=== PATIENT | female | born 1980 | race Caucasian/White ===

== ENCOUNTER → 2016-03-22 | Outpatient (REF) | payer OTHER ==
[~2016-03-22] MED LIST: ASPI1TAB PO; BUSP10TA PO; FLUO10CA9 PO; LOVA20TA2 PO; TRAZ150T14 PO; VITMTA PO
== END ==
LOC: M SFHCWAGY 15:18
PROVIDERS: ATTEND Nurse Practitioner Family
DX: Z12.4 Encounter for screening for malignant neoplasm of cervix (principal)

== ENCOUNTER 2016-04-06 14:42 | Emergency (ER) | payer OTHER ==
[2016-04-06] MEDS ORDERED: NORCO, ANEXSIA 5/325MG TABLET (HYDROcodone/ACETAMINOPHEN) As Ordered ONE (16:31)
[2016-04-06] MEDS ORDERED: KETOROLAC TROMETHAMINE 10 MG TAB As Ordered ONE (16:31)
--- NOTE | 2016-04-06 16:39 | EDDOCDS ---
Physician Documentation [facility] Name: Moo Gardiner Age: 36 yrs Sex: Female : 1980 Arrival Date: 04/06/2016 Time: 14:42 Bed TR7 Private MD: Ramon Boyd Disposition: 04/06/16 16:30 Discharged to Home/Self Care. Impression: Pelvic and perineal pain - chronic. - Condition is Stable. - Discharge Instructions: Pelvic Pain, Female. - Prescriptions for Hydrocodone- Acetaminophen 5-325 mg Oral Tablet - take 1 tablet by ORAL route every 6 hours As needed MDD: 4 tabs; 16 tablet. - Medication Reconciliation, Local Pharmacy Hours form. - Follow up: Emergency Department; When: As needed. Follow up: Samara Hernandez MD; When: Call to arrange an appointment; Reason: Wound/Symptom Recheck, Recheck today's complaints, Worsening of conditions, Continuance of care. - Problem is chronic. - Symptoms are unchanged. - Notes: You may take motrin 800 mg over the counter three times daily as needed for pain. Historical: - Allergies: no known allergies; - Home Meds: 1. trazodone 150 mg Oral tab 1 tab nightly 2. Prozac 20 mg Oral cap 1 cap once daily 3. lovastatin 20 mg Oral tab 1 tab once daily 4. BuSpar 10 mg Oral tab 1 tab 3 times per day 5. aspirin 81 mg Oral chew 1 tab once daily 6. multivitamin Oral tab daily - PMHx: Depression; Hypercholesterolemia; Kidney stones; Anxiety; PTSD; - PSHx: Lithotripsy; Tubal ligation; Tonsillectomy; - Social history: Smoking status: Patient uses tobacco products, current every day smoker. No barriers to communication noted, The patient speaks fluent Argentine, Speaks appropriately for age. - Family history: Not pertinent. - : The pt / caregiver states he / she is not on anticoagulants. Home medication list is obtained from the patient, [employer] import data. 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 6 in. (167.64 cm); Pain 10/10; 14:43 Body Mass Index 27.44 (77.11 kg, 167.64 cm) sew MDM: 16:29 ketorolac 10 mg PO once ordered. cc10 16:29 HYDROcodone-acetaminophen 5 mg-325 mg 1 tabs PO once ordered. cc10 Administered Medications: 16:35 Drug: ketorolac 10 mg [ketorolac 10 mg tablet (1 tabs)] Route: PO; mlb1 16:35 Drug: HYDROcodone-acetaminophen 1 tabs [hydrocodone 5 mg-acetaminophen 325 mg tablet (1 mlb1 tabs)] Route: PO; Signatures: Sohail Orozco RN RN mlb1 Marina Hinton RN RN ead Coniski, Colin, PA-C PACadence cc10 IVY
--- NOTE | 2016-04-06 16:39 | EDDOCDS ---
Nurse's Notes [facility] Name: Moo Gardiner Age: 36 yrs Sex: Female : 1980 Arrival Date: 04/06/2016 Time: 14:42 Bed TR7 Private MD: Ramon Boyd Diagnosis: Pelvic and perineal pain-chronic Presentation: 04/06 15:00 Presenting complaint: Patient states: Pt states she was seen here two weeks ago and ead diagnosed with polyps on the cervix. Pt states she has a consult with a surgeon next month and states "I just need something for pain. They gave me a script for something last time but I couldn't get prior authorization for it to have it filled.". Risk factors: the patient reports a small or scant amount of vaginal bleeding. Adult Sepsis Screening: The patient does not have new or worsening altered mentation. Patient's respiratory rate is less than 22. Systolic blood pressure is greater than 100. Patient has a qSOFA score of 0- Negative Sepsis Screen. Suicide/Homicide risk assessment- the patient denies having any suicidal and/or homicidal ideations and does not present with any other emotional, behavioral or mental health complaints. Status: Patient is not a business services associate or dependent. Transition of care: patient was not received from another setting of care. 15:00 Acuity: LANA Level 3 ead 15:00 Method Of Arrival: Walkin/Carried/Asstd ead Triage Assessment: 15:00 General: Appears in no apparent distress, uncomfortable, Behavior is appropriate for ead age, cooperative. Pain: Location: left lower quadrant Pain currently is 10 out of 10 on a pain scale. HIV screening NA for this visit Offered previously. GI: Reports lower abdominal pain, Denies nausea, vomiting. : Reports vaginal bleeding that is spotty. Derm: Skin is pink, warm & dry. 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 trazodone 150 mg Oral tab 1 tab nightly 2. Prozac 20 mg Oral cap 1 cap once daily 3. lovastatin 20 mg Oral tab 1 tab once daily 4. BuSpar 10 mg Oral tab 1 tab 3 times per day 5. aspirin 81 mg Oral chew 1 tab once daily 6. multivitamin Oral tab daily - PMHx: Depression; Hypercholesterolemia; Kidney stones; Anxiety; PTSD; - PSHx: Lithotripsy; Tubal ligation; Tonsillectomy; - Social history: Smoking status: Patient uses tobacco products, current every day smoker. No barriers to communication noted, The patient speaks fluent [place] Citizen, Speaks appropriately for age. - Family history: Not pertinent. - : The pt / caregiver states he / she is not on anticoagulants. Home medication list is obtained from the patient, [employer] import data. 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 Screenin:36 Screening information is obtained from the patient. Fall risk: No risks identified. mlb1 Assistance ADL's: requires no assistance with activities of daily living. Abuse/DV Screen: The patient / caregiver reports he/she is: not in a situation that causes fear, pain or injury. Nutritional screening: No deficits noted. Advance Directives: Currently, there is no health care proxy. home support is adequate. Assessment: 16:35 General: Appears in no apparent distress, comfortable, Behavior is appropriate for age, mlb1 cooperative. Pain: Location: pelvis and left lower quadrant Pain currently is 10 out of 10 on a pain scale. GI: Abdomen is non- distended Bowel sounds present X 4 quads. Abd is soft and non tender. Derm: No deficits noted. Vital Signs: 14:43 BP 126 / 68; Pulse 73; Resp 16; Temp 97.3(O); Pulse Ox 100% on R/A; Weight 77.11 kg; sew Height 5 ft. 6 in. (167.64 cm); Pain 10/10; 14:43 Body Mass Index 27.44 (77.11 kg, 167.64 cm) [facility] [place]: 14:43 Log In Time: April 06, 2016 at 14:43. [facility] [place] Course: 14:43 Patient visited by Iris Cassidy. sew 14:43 Ramon Boyd DO is Private Physician. sew 14:43 Patient moved to Waiting sew 14:44 Patient visited by Iris Cassidy. sew 14:44 Patient moved to Pre RCE sew 15:01 Triage Initiated ead 16:16 Patient visited by Marina Hinton RN. ead 16:16 Patient moved to Triage 1 ead 16:21 Duran Hanley PA-C is PHCP. cc10 16:21 Iris Cisneros MD is Attending Physician. cc10 16:25 Patient visited by Duran Hanley PA-C. cc10 16:25 Patient visited by Duran Hanley PA-C. cc10 16:30 Samara Hernandez MD is Referral Physician. cc10 16:36 Patient moved to [place] [id number] 16:37 No IV's were initiated during this patient's visit. No procedures done that require mlb1 assistance. 16:38 The patient / caregiver is instructed regarding the plan of care and ED course. mlb1 Administered Medications: 16:35 Drug: ketorolac 10 mg [ketorolac 10 mg tablet (1 tabs)] Route: PO; mlb1 16:35 Drug: HYDROcodone-acetaminophen 1 tabs [hydrocodone 5 mg-acetaminophen 325 mg tablet (1 mlb1 tabs)] Route: PO; Order Results: There are currently no results for this order. Outcome: 16:30 Discharge ordered by Provider. cc10 16:37 Discharge Assessment: Patient awake, alert and oriented x 3. No cognitive and/or mlb1 functional deficits noted. Patient verbalized understanding of disposition instructions. patient administered narcotics - yes. Pt provided with safe discharge. The following High Risk Discharge criteria are identified: None. Discharged to home ambulatory. Condition: good. Discharge instructions given to patient, Instructed on discharge instructions, follow up and referral plans. medication usage, no driving heavy equipment, Demonstrated understanding of instructions, medications, Patient was not receptive of discharge instructions. Prescriptions given X 1. No special radiology studies were completed. Property sent home with patient. 16:38 Patient left the ED. mlb1 Signatures: Sohail Orozco RN RN mlb1 Wanda Tomas,RN SANJU ck1 Iris Cassidy Emily, RN RN ead Coniski, Colin, PA-C PA-C cc10 MTDOswaldo
--- NOTE | 2016-04-08 17:39 | EDDOCDS ---
Physician Documentation [facility] Name: Moo Gardiner Age: 36 yrs Sex: Female : 1980 Arrival Date: 04/06/2016 Time: 14:42 Bed TR7 Private MD: Ramon Boyd Disposition: 04/06/16 16:30 Discharged to Home/Self Care. Impression: Pelvic and perineal pain - chronic. - Condition is Stable. - Discharge Instructions: Pelvic Pain, Female. - Prescriptions for Hydrocodone- Acetaminophen 5-325 mg Oral Tablet - take 1 tablet by ORAL route every 6 hours As needed MDD: 4 tabs; 16 tablet. - Medication Reconciliation, Local Pharmacy Hours form. - Follow up: Emergency Department; When: As needed. Follow up: Samara Hernandez MD; When: Call to arrange an appointment; Reason: Wound/Symptom Recheck, Recheck today's complaints, Worsening of conditions, Continuance of care. - Problem is chronic. - Symptoms are unchanged. - Notes: You may take motrin 800 mg over the counter three times daily as needed for pain. Historical: - Allergies: no known allergies; - Home Meds: 1. trazodone 150 mg Oral tab 1 tab nightly 2. Prozac 20 mg Oral cap 1 cap once daily 3. lovastatin 20 mg Oral tab 1 tab once daily 4. BuSpar 10 mg Oral tab 1 tab 3 times per day 5. aspirin 81 mg Oral chew 1 tab once daily 6. multivitamin Oral tab daily - PMHx: Depression; Hypercholesterolemia; Kidney stones; Anxiety; PTSD; - PSHx: Lithotripsy; Tubal ligation; Tonsillectomy; - Social history: Smoking status: Patient uses tobacco products, current every day smoker. No barriers to communication noted, The patient speaks fluent Finnish, Speaks appropriately for age. - Family history: Not pertinent. - : The pt / caregiver states he / she is not on anticoagulants. Home medication list is obtained from the patient, [employer] import data. 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 6 in. (167.64 cm); Pain 10/10; 14:43 Body Mass Index 27.44 (77.11 kg, 167.64 cm) sew MDM: 16:29 ketorolac 10 mg PO once ordered. cc10 16:29 HYDROcodone-acetaminophen 5 mg-325 mg 1 tabs PO once ordered. cc10 04/07 12:23 T-Sheet-- Draft Copy was scanned into [employer] and attached to record. gb Administered Medications: 04/06 16:35 Drug: ketorolac 10 mg [ketorolac 10 mg tablet (1 tabs)] Route: PO; mlb1 16:35 Drug: HYDROcodone-acetaminophen 1 tabs [hydrocodone 5 mg-acetaminophen 325 mg tablet (1 mlb1 tabs)] Route: PO; Signatures: Marcie Beltran, Reg Reg gb Sohail Orozco RN RN mlb1 Marina Hinton RN RN Duran Julian PA-C PACadence cc10 The chart was reviewed and I authenticate all verbal orders and agree with the evaluation and treatment provided.Attachments: 04/07 12:23 T-Sheet-- Draft Copy gb Chart Complete MTDD
--- NOTE | 2016-04-08 17:39 | EDDOCDS ---
Physician Documentation [facility] Name: Moo Gardiner Age: 36 yrs Sex: Female : 1980 Arrival Date: 04/06/2016 Time: 14:42 Bed TR7 Private MD: Ramon Boyd Disposition: 04/06/16 16:30 Discharged to Home/Self Care. Impression: Pelvic and perineal pain - chronic. - Condition is Stable. - Discharge Instructions: Pelvic Pain, Female. - Prescriptions for Hydrocodone- Acetaminophen 5-325 mg Oral Tablet - take 1 tablet by ORAL route every 6 hours As needed MDD: 4 tabs; 16 tablet. - Medication Reconciliation, Local Pharmacy Hours form. - Follow up: Emergency Department; When: As needed. Follow up: Samara Henrandez MD; When: Call to arrange an appointment; Reason: Wound/Symptom Recheck, Recheck today's complaints, Worsening of conditions, Continuance of care. - Problem is chronic. - Symptoms are unchanged. - Notes: You may take motrin 800 mg over the counter three times daily as needed for pain. Historical: - Allergies: no known allergies; - Home Meds: 1. trazodone 150 mg Oral tab 1 tab nightly 2. Prozac 20 mg Oral cap 1 cap once daily 3. lovastatin 20 mg Oral tab 1 tab once daily 4. BuSpar 10 mg Oral tab 1 tab 3 times per day 5. aspirin 81 mg Oral chew 1 tab once daily 6. multivitamin Oral tab daily - PMHx: Depression; Hypercholesterolemia; Kidney stones; Anxiety; PTSD; - PSHx: Lithotripsy; Tubal ligation; Tonsillectomy; - Social history: Smoking status: Patient uses tobacco products, current every day smoker. No barriers to communication noted, The patient speaks fluent Ukrainian, Speaks appropriately for age. - Family history: Not pertinent. - : The pt / caregiver states he / she is not on anticoagulants. Home medication list is obtained from the patient, [employer] import data. 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 6 in. (167.64 cm); Pain 10/10; 14:43 Body Mass Index 27.44 (77.11 kg, 167.64 cm) sew MDM: 16:29 ketorolac 10 mg PO once ordered. cc10 16:29 HYDROcodone-acetaminophen 5 mg-325 mg 1 tabs PO once ordered. cc10 04/07 12:23 T-Sheet-- Draft Copy was scanned into [employer] and attached to record. gb Administered Medications: 04/06 16:35 Drug: ketorolac 10 mg [ketorolac 10 mg tablet (1 tabs)] Route: PO; mlb1 16:35 Drug: HYDROcodone-acetaminophen 1 tabs [hydrocodone 5 mg-acetaminophen 325 mg tablet (1 mlb1 tabs)] Route: PO; Signatures: Marcie Beltran, Reg Reg gb Sohail Orozco RN RN mlb1 Marina Hinton RN RN Duran Julian PA-C PACadence cc10 The chart was reviewed and I authenticate all verbal orders and agree with the evaluation and treatment provided.Attachments: 04/07 12:23 T-Sheet-- Draft Copy gb Chart Complete MTDD
--- NOTE | 2016-04-08 17:40 | EDDOCDS ---
Nurse's Notes [facility] Name: Moo Gardiner Age: 36 yrs Sex: Female : 1980 Arrival Date: 04/06/2016 Time: 14:42 Bed TR7 Private MD: Ramon Boyd Diagnosis: Pelvic and perineal pain-chronic Presentation: 04/06 15:00 Presenting complaint: Patient states: Pt states she was seen here two weeks ago and ead diagnosed with polyps on the cervix. Pt states she has a consult with a surgeon next month and states "I just need something for pain. They gave me a script for something last time but I couldn't get prior authorization for it to have it filled.". Risk factors: the patient reports a small or scant amount of vaginal bleeding. Adult Sepsis Screening: The patient does not have new or worsening altered mentation. Patient's respiratory rate is less than 22. Systolic blood pressure is greater than 100. Patient has a qSOFA score of 0- Negative Sepsis Screen. Suicide/Homicide risk assessment- the patient denies having any suicidal and/or homicidal ideations and does not present with any other emotional, behavioral or mental health complaints. 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 Transition of care: patient was not received from another setting of care. 15:00 Acuity: LANA Level 3 ead 15:00 Method Of Arrival: Walkin/Carried/Asstd ead Triage Assessment: 15:00 General: Appears in no apparent distress, uncomfortable, Behavior is appropriate for ead age, cooperative. Pain: Location: left lower quadrant Pain currently is 10 out of 10 on a pain scale. HIV screening NA for this visit Offered previously. GI: Reports lower abdominal pain, Denies nausea, vomiting. : Reports vaginal bleeding that is spotty. Derm: Skin is pink, warm & dry. 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 trazodone 150 mg Oral tab 1 tab nightly 2. Prozac 20 mg Oral cap 1 cap once daily 3. lovastatin 20 mg Oral tab 1 tab once daily 4. BuSpar 10 mg Oral tab 1 tab 3 times per day 5. aspirin 81 mg Oral chew 1 tab once daily 6. multivitamin Oral tab daily - PMHx: Depression; Hypercholesterolemia; Kidney stones; Anxiety; PTSD; - PSHx: Lithotripsy; Tubal ligation; Tonsillectomy; - Social history: Smoking status: Patient uses tobacco products, current every day smoker. No barriers to communication noted, The patient speaks fluent Malaysian, Speaks appropriately for age. - Family history: Not pertinent. - : The pt / caregiver states he / she is not on anticoagulants. Home medication list is obtained from the patient, [employer] import data. 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 Screenin:36 Screening information is obtained from the patient. Fall risk: No risks identified. mlb1 Assistance ADL's: requires no assistance with activities of daily living. Abuse/DV Screen: The patient / caregiver reports he/she is: not in a situation that causes fear, pain or injury. Nutritional screening: No deficits noted. Advance Directives: Currently, there is no health care proxy. home support is adequate. Assessment: 16:35 General: Appears in no apparent distress, comfortable, Behavior is appropriate for age, mlb1 cooperative. Pain: Location: pelvis and left lower quadrant Pain currently is 10 out of 10 on a pain scale. GI: Abdomen is non- distended Bowel sounds present X 4 quads. Abd is soft and non tender. Derm: No deficits noted. Vital Signs: 14:43 BP 126 / 68; Pulse 73; Resp 16; Temp 97.3(O); Pulse Ox 100% on R/A; Weight 77.11 kg; sew Height 5 ft. 6 in. (167.64 cm); Pain 10/10; 14:43 Body Mass Index 27.44 (77.11 kg, 167.64 cm) [facility] [place] Vitals: 14:43 Log In Time: April 06, 2016 at 14:43. [facility] [place] ED Course: 14:43 Patient visited by Iris Cassidy. sew 14:43 Ramon Boyd DO is Private Physician. sew 14:43 Patient moved to Waiting sew 14:44 Patient visited by Iris Cassidy. sew 14:44 Patient moved to Pre RCE sew 15:01 Triage Initiated ead 16:16 Patient visited by Marina Hinton RN. ead 16:16 Patient moved to Triage 1 ead 16:21 Duran Hanley PA-C is PHCP. cc10 16:21 Iris Cisneros MD is Attending Physician. cc10 16:25 Patient visited by Duran Hanley PA-C. cc10 16:25 Patient visited by Duran Hanley PA-C. cc10 16:30 Samara Hernandez MD is Referral Physician. cc10 16:36 Patient moved to TR7 [facility] 16:37 No IV's were initiated during this patient's visit. No procedures done that require mlb1 assistance. 16:38 The patient / caregiver is instructed regarding the plan of care and ED course. mlb1 04/07 12:23 T-Sheet-- Draft Copy was scanned into [employer] and attached to record. gb Administered Medications: 04/06 16:35 Drug: ketorolac 10 mg [ketorolac 10 mg tablet (1 tabs)] Route: PO; mlb1 16:35 Drug: HYDROcodone-acetaminophen 1 tabs [hydrocodone 5 mg-acetaminophen 325 mg tablet (1 mlb1 tabs)] Route: PO; Order Results: There are currently no results for this order. Outcome: 16:30 Discharge ordered by Provider. cc10 16:37 Discharge Assessment: Patient awake, alert and oriented x 3. No cognitive and/or mlb1 functional deficits noted. Patient verbalized understanding of disposition instructions. patient administered narcotics - yes. Pt provided with safe discharge. The following High Risk Discharge criteria are identified: None. Discharged to home ambulatory. Condition: good. Discharge instructions given to patient, Instructed on discharge instructions, follow up and referral plans. medication usage, no driving heavy equipment, Demonstrated understanding of instructions, medications, Patient was not receptive of discharge instructions. Prescriptions given X 1. No special radiology studies were completed. Property sent home with patient. 16:38 Patient left the ED. mlb1 Signatures: Marcie Beltran, Reg Reg Sohail Tavares RN RN mlb1 Wanda Tomas RN RN ck1 Iris Cassidy Emily, RN RN eaDuran Mcgee PA-C PA-C cc Chart Complete MTDD
== END 2016-04-06 16:38 | disposition home or self-care (01) ==
LOC: M ED 14:42
DX: R10.2 Pelvic and perineal pain (principal); F32.9 Major depressive disorder, single episode, unspecified; E78.00 Pure hypercholesterolemia, unspecified; Z87.442 Personal history of urinary calculi; F41.9 Anxiety disorder, unspecified; F43.10 Post-traumatic stress disorder, unspecified; F17.210 Nicotine dependence, cigarettes, uncomplicated; Z79.82 Long term (current) use of aspirin; Z79.899 Other long term (current) drug therapy

== ENCOUNTER 2016-05-04 15:09 | Emergency (ER) | payer OTHER ==
[2016-05-04] MEDS ORDERED: NORCO, ANEXSIA 5/325MG TABLET (HYDROcodone/ACETAMINOPHEN) As Ordered ONE (15:47)
[2016-05-04] MEDS ORDERED: KETOROLAC 30 MG/ML VIAL (J1885) As Ordered ONE (15:48)
--- NOTE | 2016-05-04 16:20 | EDDOCDS ---
Nurse's Notes [facility] Name: Moo Gardiner Age: 36 yrs Sex: Female : 1980 Arrival Date: 05/04/2016 Time: 15:09 Bed TR8 Private MD: Ramon Boyd Diagnosis: Pelvic and perineal pain-Chronic;Dysmenorrhea, unspecified Presentation: 05/04 15:15 Presenting complaint: Patient states: Suprapubic pain began over a year ago worse mlb1 recently states diagnosed with polyps on Uterus and scheduled for hysterectomy in June. Risk factors: the patient reports moderate vaginal bleeding. Adult Sepsis Screening: The patient does not have new or worsening altered mentation. Patient's respiratory rate is less than 22. Systolic blood pressure is greater than 100. Patient has a qSOFA score of 0- Negative Sepsis Screen. Suicide/Homicide risk assessment- the patient denies having any suicidal and/or homicidal ideations and does not present with any other emotional, behavioral or mental health complaints. Status: Patient is not a corporate services manager or dependent. Transition of care: patient was not received from another setting of care. 15:15 Acuity: LANA Level 3 mlb1 15:15 Method Of Arrival: Walkin/Carried/Asstd mlb1 Triage Assessment: 15:18 General: Appears uncomfortable, Behavior is appropriate for age, cooperative. Pain: mlb1 Location: suprapubic area Pain currently is 10 out of 10 on a pain scale. HIV screening NA for this visit Offered previously. 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 Prozac 10 mg oral tab once daily 2. aspirin 81 mg Oral chew 1 tab once daily 3. multivitamin Oral tab daily 4. trazodone 150 mg Oral tab 1 tab nightly 5. lovastatin 20 mg Oral tab 1 tab once daily 6. BuSpar 10 mg Oral tab 1 tab 3 times per day - PMHx: Anxiety; Depression; Hypercholesterolemia; Kidney stones; PTSD; - PSHx: Lithotripsy; Tubal ligation; Tonsillectomy; - Social history: Smoking status: Patient uses tobacco products, light tobacco smoker. No barriers to communication noted, The patient speaks fluent Ukrainian, Speaks appropriately for age. - Family history: Not pertinent. - : The pt / caregiver states he / she is not on anticoagulants. Home medication list is obtained from the patient. 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 Screenin:52 Screening information is obtained from the patient. Fall risk: No risks identified. ck1 Assistance ADL's: requires no assistance with activities of daily living. Abuse/DV Screen: The patient / caregiver reports he/she is: not in a situation that causes fear, pain or injury. Nutritional screening: No deficits noted. Advance Directives: Currently, there is no health care proxy. home support is adequate. Assessment: 15:53 General: Appears uncomfortable, Behavior is appropriate for age, cooperative. Pain: ck1 Location: left lower quadrant Pain currently is 10 out of 10 on a pain scale. Neurological: Level of Consciousness is awake, alert, obeys commands, Oriented to person, place, time. Respiratory: Respiratory effort is unlabored, Respiratory pattern is regular, symmetrical. GI: Abdomen is non- distended Bowel sounds present X 4 quads. Abd is soft and non tender X 4 quads. : Reports vaginal bleeding that is Denies burning with urination, discharge, urinary frequency. Derm: Skin is intact, is healthy with good turgor, Skin is pink, warm & dry. 16:18 General: Appears uncomfortable, Behavior is appropriate for age, cooperative, pleasant. jo3 Neurological: No deficits noted. Level of Consciousness is awake, alert, Oriented to person, place, time. Respiratory: No deficits noted. Airway is patent Respiratory effort is even, unlabored. Derm: Skin is pink, warm & dry. Vital Signs: 15:12 BP 134 / 88; Pulse 89; Resp 16; Temp 98.5(O); Pulse Ox 100% on R/A; Weight 81.19 kg lr2 (R); Height 5 ft. 6 in. (167.64 cm) (R); Pain 10/10; 15:12 Body Mass Index 28.89 (81.19 kg, 167.64 cm) lr2 Vitals: 15:12 Log In Time: May 04, 2016 at 15:09. lr2 ED Course: 15:11 Patient visited by Nena Whiting. lr2 15:11 Ramon Boyd DO is Private Physician. lr2 15:11 Patient moved to Waiting lr2 15:11 Patient moved to Pre RCE lr2 15:15 Patient visited by Sohail Orozco RN. mlb1 15:17 Triage Initiated mlb1 15:18 Patient visited by Sohail Orozco RN. mlb1 15:19 Patient moved to Triage 3 jb5 15:31 [facility] ef1 15:31 Eren Larsen MD is Attending Physician. ef1 15:31 Patient visited by Amy Kumar PA-C. ef1 15:52 Patient visited by Wanda Tomas,SANJU. ck1 15:52 No IV's were initiated during this patient's visit. No procedures done that require ck1 assistance. 15:53 The patient / caregiver is instructed regarding the plan of care and ED course. ck1 16:09 Samara Hernandez MD is Referral Physician. ef1 16:17 Patient moved to TR8 jb5 Administered Medications: 15:52 Drug: ketorolac 60 mg [ketorolac 30 mg/mL (1 mL) injection solution (2 mL)] Route: IM; ck1 Site: right gluteus; 15:52 Drug: HYDROcodone-acetaminophen 1 tabs [hydrocodone 5 mg-acetaminophen 325 mg tablet (1 ck1 tabs)] Route: PO; Order Results: There are currently no results for this order. Outcome: 16:09 Discharge ordered by Provider. ef1 16:18 Discharge Assessment: Patient awake, alert and oriented x 3. No cognitive and/or jo3 functional deficits noted. Patient verbalized understanding of disposition instructions. patient administered narcotics - yes. Pt provided with safe discharge. The following High Risk Discharge criteria are identified: None. Discharged to home ambulatory, with significant other. Condition: stable Condition: improved. Discharge instructions given to patient, Instructed on discharge instructions, follow up and referral plans. medication usage, Demonstrated understanding of instructions, medications, Pt was receptive of discharge instructions/ teaching. Prescriptions given X 2. No special radiology studies were completed. Property sent home with patient. 16:19 Patient left the ED. jo3 Signatures: Sohail Orozco, RN RN mlb1 Wanda Tomas,RN RN ck1 Zoë Rosado, CONTINUOUS VULCANIZING MACHINE OPERATOR CONTINUOUS VULCANIZING MACHINE OPERATOR jb5 Amy Torres RN RN jo3 Amy Kumar PA-C PA-C ef1 Nena Whiting lr2 IVY
--- NOTE | 2016-05-04 16:20 | EDDOCDS ---
Physician Documentation [facility] Name: Moo Gardiner Age: 36 yrs Sex: Female : 1980 Arrival Date: 05/04/2016 Time: 15:09 Bed TR8 Private MD: Ramon Boyd Disposition: 05/04/16 16:09 Discharged to Home/Self Care. Impression: Pelvic and perineal pain - Chronic, Dysmenorrhea, unspecified. - Condition is Stable. - Discharge Instructions: Pelvic Pain, Female, Dysmenorrhea, [id number]. - Prescriptions for [place] 5- 325 mg Oral Tablet - take 1 tablet by ORAL route every 6 hours As needed MDD: 4 tabs; 10 tablet. ketorolac 10 mg Oral Tablet - take 1 tablet by ORAL route 3 times per day As needed MDD- 30mg. Up to 5 days total use.; 15 tablet. - Medication Reconciliation, Local Pharmacy Hours form. - [facility]; When: 1 - 2 days; Reason: Further diagnostic work-up, Recheck today's complaints, Continuance of care. Follow up: Emergency Department; Reason: Worsening of conditions. - Problem is new. - Symptoms have improved. Historical: - Allergies: no known allergies; - Home Meds: 1. Prozac 10 mg oral tab once daily 2. aspirin 81 mg Oral chew 1 tab once daily 3. multivitamin Oral tab daily 4. trazodone 150 mg Oral tab 1 tab nightly 5. lovastatin 20 mg Oral tab 1 tab once daily 6. BuSpar 10 mg Oral tab 1 tab 3 times per day - PMHx: Anxiety; Depression; Hypercholesterolemia; Kidney stones; PTSD; - PSHx: Lithotripsy; Tubal ligation; Tonsillectomy; - Social history: Smoking status: Patient uses tobacco products, light tobacco smoker. No barriers to communication noted, The patient speaks fluent Slovenian, Speaks appropriately for age. - Family history: Not pertinent. - : The pt / caregiver states he / she is not on anticoagulants. Home medication list is obtained from the patient. 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 6 in. (167.64 cm) (R); Pain 10; 15:12 Body Mass Index 28.89 (81.19 kg, 167.64 cm) lr2 MDM: 15:45 ketorolac 60 mg IM once ordered. ef1 15:45 HYDROcodone-acetaminophen 5 mg-325 mg 1 tabs PO once ordered. ef1 Administered Medications: 15:52 Drug: ketorolac 60 mg [ketorolac 30 mg/mL (1 mL) injection solution (2 mL)] Route: IM; ck1 Site: right gluteus; 15:52 Drug: HYDROcodone-acetaminophen 1 tabs [hydrocodone 5 mg-acetaminophen 325 mg tablet (1 ck1 tabs)] Route: PO; Signatures: Sohail Orozco RN RN mlb1 Wanda Tomas RN RN ck1 Amy Torres RN RN jo3 Amy Kumar PA-C PA-C ef1 MTDD
--- NOTE | 2016-05-06 17:20 | EDDOCDS ---
Nurse's Notes [facility] Name: Moo Gardiner Age: 36 yrs Sex: Female : 1980 Arrival Date: 05/04/2016 Time: 15:09 Bed TR8 Private MD: Ramon Boyd Diagnosis: Pelvic and perineal pain-Chronic;Dysmenorrhea, unspecified Presentation: 05/04 15:15 Presenting complaint: Patient states: Suprapubic pain began over a year ago worse mlb1 recently states diagnosed with polyps on Uterus and scheduled for hysterectomy in June. Risk factors: the patient reports moderate vaginal bleeding. Adult Sepsis Screening: The patient does not have new or worsening altered mentation. Patient's respiratory rate is less than 22. Systolic blood pressure is greater than 100. Patient has a qSOFA score of 0- Negative Sepsis Screen. Suicide/Homicide risk assessment- the patient denies having any suicidal and/or homicidal ideations and does not present with any other emotional, behavioral or mental health complaints. Status: Patient is not a client service consultant or dependent. Transition of care: patient was not received from another setting of care. 15:15 Acuity: LANA Level 3 mlb1 15:15 Method Of Arrival: Walkin/Carried/Asstd mlb1 Triage Assessment: 15:18 General: Appears uncomfortable, Behavior is appropriate for age, cooperative. Pain: mlb1 Location: suprapubic area Pain currently is 10 out of 10 on a pain scale. HIV screening NA for this visit Offered previously. 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 Prozac 10 mg oral tab once daily 2. aspirin 81 mg Oral chew 1 tab once daily 3. multivitamin Oral tab daily 4. trazodone 150 mg Oral tab 1 tab nightly 5. lovastatin 20 mg Oral tab 1 tab once daily 6. BuSpar 10 mg Oral tab 1 tab 3 times per day - PMHx: Anxiety; Depression; Hypercholesterolemia; Kidney stones; PTSD; - PSHx: Lithotripsy; Tubal ligation; Tonsillectomy; - Social history: Smoking status: Patient uses tobacco products, light tobacco smoker. No barriers to communication noted, The patient speaks fluent Welsh, Speaks appropriately for age. - Family history: Not pertinent. - : The pt / caregiver states he / she is not on anticoagulants. Home medication list is obtained from the patient. 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 Screenin:52 Screening information is obtained from the patient. Fall risk: No risks identified. ck1 Assistance ADL's: requires no assistance with activities of daily living. Abuse/DV Screen: The patient / caregiver reports he/she is: not in a situation that causes fear, pain or injury. Nutritional screening: No deficits noted. Advance Directives: Currently, there is no health care proxy. home support is adequate. Assessment: 15:53 General: Appears uncomfortable, Behavior is appropriate for age, cooperative. Pain: ck1 Location: left lower quadrant Pain currently is 10 out of 10 on a pain scale. Neurological: Level of Consciousness is awake, alert, obeys commands, Oriented to person, place, time. Respiratory: Respiratory effort is unlabored, Respiratory pattern is regular, symmetrical. GI: Abdomen is non- distended Bowel sounds present X 4 quads. Abd is soft and non tender X 4 quads. : Reports vaginal bleeding that is Denies burning with urination, discharge, urinary frequency. Derm: Skin is intact, is healthy with good turgor, Skin is pink, warm & dry. 16:18 General: Appears uncomfortable, Behavior is appropriate for age, cooperative, pleasant. jo3 Neurological: No deficits noted. Level of Consciousness is awake, alert, Oriented to person, place, time. Respiratory: No deficits noted. Airway is patent Respiratory effort is even, unlabored. Derm: Skin is pink, warm & dry. Vital Signs: 15:12 BP 134 / 88; Pulse 89; Resp 16; Temp 98.5(O); Pulse Ox 100% on R/A; Weight 81.19 kg lr2 (R); Height 5 ft. 6 in. (167.64 cm) (R); Pain 10/10; 15:12 Body Mass Index 28.89 (81.19 kg, 167.64 cm) lr2 Vitals: 15:12 Log In Time: May 04, 2016 at 15:09. lr2 ED Course: 15:11 Patient visited by Nena Whiting. lr2 15:11 Ramon Boyd DO is Private Physician. lr2 15:11 Patient moved to Waiting lr2 15:11 Patient moved to Pre RCE lr2 15:15 Patient visited by Sohail Orozco, SANJU. mlb1 15:17 Triage Initiated mlb1 15:18 Patient visited by Sohail Orozco RN. mlb1 15:19 Patient moved to Triage 3 jb5 15:31 Amy Kumar PA-C is PHCP. ef1 15:31 Eren Larsen MD is Attending Physician. ef1 15:31 Patient visited by Amy Kumar PA-C. ef1 15:52 Patient visited by Wanda Tomas RN. ck1 15:52 No IV's were initiated during this patient's visit. No procedures done that require ck1 assistance. 15:53 The patient / caregiver is instructed regarding the plan of care and ED course. ck1 16:09 Samara Hernandez MD is Referral Physician. ef1 16:17 Patient moved to TR8 jb5 0217 12:42 T-Sheet-- Draft Copy was scanned into [employer] and attached to record. gb Administered Medications: 02 15:52 Drug: ketorolac 60 mg [ketorolac 30 mg/mL (1 mL) injection solution (2 mL)] Route: IM; ck1 Site: right gluteus; 15:52 Drug: HYDROcodone-acetaminophen 1 tabs [hydrocodone 5 mg-acetaminophen 325 mg tablet (1 ck1 tabs)] Route: PO; Order Results: There are currently no results for this order. Outcome: 16:09 Discharge ordered by Provider. ef1 16:18 Discharge Assessment: Patient awake, alert and oriented x 3. No cognitive and/or jo3 functional deficits noted. Patient verbalized understanding of disposition instructions. patient administered narcotics - yes. Pt provided with safe discharge. The following High Risk Discharge criteria are identified: None. Discharged to home ambulatory, with significant other. Condition: stable Condition: improved. Discharge instructions given to patient, Instructed on discharge instructions, follow up and referral plans. medication usage, Demonstrated understanding of instructions, medications, Pt was receptive of discharge instructions/ teaching. Prescriptions given X 2. No special radiology studies were completed. Property sent home with patient. 16:19 Patient left the ED. jo3 Signatures: Marcie Beltran, Reg Reg gb Sohail Orozco, RN RN [facility] Wanda Tomas RN RN ck1 Zoë Rosado LICENSED GUIDE LICENSED GUIDE jb5 Amy Torres,RN RN jo3 Amy Kumar, PA-C PA-C mustapha1 Nena Whiting Chart Complete MTDD
--- NOTE | 2016-05-06 17:20 | EDDOCDS ---
Physician Documentation [facility] Name: Moo Gardiner Age: 36 yrs Sex: Female : 1980 Arrival Date: 05/04/2016 Time: 15:09 Bed TR8 Private MD: Ramon Boyd Disposition: 05/04/16 16:09 Discharged to Home/Self Care. Impression: Pelvic and perineal pain - Chronic, Dysmenorrhea, unspecified. - Condition is Stable. - Discharge Instructions: Pelvic Pain, Female, Dysmenorrhea, [id number]. - Prescriptions for [place] 5- 325 mg Oral Tablet - take 1 tablet by ORAL route every 6 hours As needed MDD: 4 tabs; 10 tablet. ketorolac 10 mg Oral Tablet - take 1 tablet by ORAL route 3 times per day As needed MDD- 30mg. Up to 5 days total use.; 15 tablet. - Medication Reconciliation, Local Pharmacy Hours form. - [facility]; When: 1 - 2 days; Reason: Further diagnostic work-up, Recheck today's complaints, Continuance of care. Follow up: Emergency Department; Reason: Worsening of conditions. - Problem is new. - Symptoms have improved. Historical: - Allergies: no known allergies; - Home Meds: 1. Prozac 10 mg oral tab once daily 2. aspirin 81 mg Oral chew 1 tab once daily 3. multivitamin Oral tab daily 4. trazodone 150 mg Oral tab 1 tab nightly 5. lovastatin 20 mg Oral tab 1 tab once daily 6. BuSpar 10 mg Oral tab 1 tab 3 times per day - PMHx: Anxiety; Depression; Hypercholesterolemia; Kidney stones; PTSD; - PSHx: Lithotripsy; Tubal ligation; Tonsillectomy; - Social history: Smoking status: Patient uses tobacco products, light tobacco smoker. No barriers to communication noted, The patient speaks fluent Japanese, Speaks appropriately for age. - Family history: Not pertinent. - : The pt / caregiver states he / she is not on anticoagulants. Home medication list is obtained from the patient. 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 6 in. (167.64 cm) (R); Pain 10; 15:12 Body Mass Index 28.89 (81.19 kg, 167.64 cm) lr2 MDM: 15:45 ketorolac 60 mg IM once ordered. ef1 15:45 HYDROcodone-acetaminophen 5 mg-325 mg 1 tabs PO once ordered. ef1 05/05 12:42 T-Sheet-- Draft Copy was scanned into [employer] and attached to record. gb Administered Medications: 05/04 15:52 Drug: ketorolac 60 mg [ketorolac 30 mg/mL (1 mL) injection solution (2 mL)] Route: IM; ck1 Site: right gluteus; 15:52 Drug: HYDROcodone-acetaminophen 1 tabs [hydrocodone 5 mg-acetaminophen 325 mg tablet (1 ck1 tabs)] Route: PO; Signatures: Marcie Beltran, Reg Reg gb Sohail Orozco RN RN mlb1 Wanda Tomas RN RN ck1 Amy Torres RN RN jo3 Amy Kumar, PACadence PACadence ef1 The chart was reviewed and I authenticate all verbal orders and agree with the evaluation and treatment provided.Attachments: 05/05 12:42 T-Sheet-- Draft Copy gb Chart Complete MTDD
--- NOTE | 2016-05-06 17:20 | EDDOCDS ---
Physician Documentation [facility] Name: Moo Gardiner Age: 36 yrs Sex: Female : 1980 Arrival Date: 05/04/2016 Time: 15:09 Bed TR8 Private MD: Ramon Boyd Disposition: 05/04/16 16:09 Discharged to Home/Self Care. Impression: Pelvic and perineal pain - Chronic, Dysmenorrhea, unspecified. - Condition is Stable. - Discharge Instructions: Pelvic Pain, Female, Dysmenorrhea, [id number]. - Prescriptions for [place] 5- 325 mg Oral Tablet - take 1 tablet by ORAL route every 6 hours As needed MDD: 4 tabs; 10 tablet. ketorolac 10 mg Oral Tablet - take 1 tablet by ORAL route 3 times per day As needed MDD- 30mg. Up to 5 days total use.; 15 tablet. - Medication Reconciliation, Local Pharmacy Hours form. - [facility]; When: 1 - 2 days; Reason: Further diagnostic work-up, Recheck today's complaints, Continuance of care. Follow up: Emergency Department; Reason: Worsening of conditions. - Problem is new. - Symptoms have improved. Historical: - Allergies: no known allergies; - Home Meds: 1. Prozac 10 mg oral tab once daily 2. aspirin 81 mg Oral chew 1 tab once daily 3. multivitamin Oral tab daily 4. trazodone 150 mg Oral tab 1 tab nightly 5. lovastatin 20 mg Oral tab 1 tab once daily 6. BuSpar 10 mg Oral tab 1 tab 3 times per day - PMHx: Anxiety; Depression; Hypercholesterolemia; Kidney stones; PTSD; - PSHx: Lithotripsy; Tubal ligation; Tonsillectomy; - Social history: Smoking status: Patient uses tobacco products, light tobacco smoker. No barriers to communication noted, The patient speaks fluent Macedonian, Speaks appropriately for age. - Family history: Not pertinent. - : The pt / caregiver states he / she is not on anticoagulants. Home medication list is obtained from the patient. 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 6 in. (167.64 cm) (R); Pain 10; 15:12 Body Mass Index 28.89 (81.19 kg, 167.64 cm) lr2 MDM: 15:45 ketorolac 60 mg IM once ordered. ef1 15:45 HYDROcodone-acetaminophen 5 mg-325 mg 1 tabs PO once ordered. ef1 05/05 12:42 T-Sheet-- Draft Copy was scanned into [employer] and attached to record. gb Administered Medications: 05/04 15:52 Drug: ketorolac 60 mg [ketorolac 30 mg/mL (1 mL) injection solution (2 mL)] Route: IM; ck1 Site: right gluteus; 15:52 Drug: HYDROcodone-acetaminophen 1 tabs [hydrocodone 5 mg-acetaminophen 325 mg tablet (1 ck1 tabs)] Route: PO; Signatures: Marcie Beltran, Reg Reg gb Sohail Orozco RN RN mlb1 Wanda Tomas RN RN ck1 Amy Torres RN RN jo3 Amy Kumar, PACadence PACadence ef1 The chart was reviewed and I authenticate all verbal orders and agree with the evaluation and treatment provided.Attachments: 05/05 12:42 T-Sheet-- Draft Copy gb Chart Complete MTDD
== END 2016-05-04 16:19 | disposition home or self-care (01) ==
LOC: M ED 15:09
DX: R10.2 Pelvic and perineal pain (principal); N94.6 Dysmenorrhea, unspecified; F41.9 Anxiety disorder, unspecified; F32.9 Major depressive disorder, single episode, unspecified; E78.00 Pure hypercholesterolemia, unspecified; F43.10 Post-traumatic stress disorder, unspecified; Z87.442 Personal history of urinary calculi; Z79.899 Other long term (current) drug therapy; Z79.82 Long term (current) use of aspirin
CPT/HCPCS: 96372; 99283; J1885

== ENCOUNTER → 2016-05-25 | Emergency (ER) | payer OTHER ==
[~2016-05-25] VITALS: Ht 170.2 cm; Wt 80.7 kg
[~2016-05-25] MED LIST changes: +KETOROLAC 30 MG/ML VIAL (J1885) IV ONE; +MORPHINE 4 MG/ML 1ML SYRINGE IV ONE; +NORCOTAB PO; +NS 1,000 ML IV ONE
[2016-05-25 21:09] LABS: BASO % 0.2 % (0.0-1.0); EOS % 0.7 % (0.0-3.0); LARGE UNSTAINED CELL # 0.1 K/mm3 (0.0-0.4); LARGE UNSTAINED CELL % 1.8 % (0.0-4.0); LYMPH # 2.1 K/mm3 (1.5-4.5); LYMPH % 25.3 % (24.0-44.0); MEAN CORPUSCULAR HEMOGLOBIN 30.5 pg (27.0-33.0); MEAN CORPUSCULAR HGB CONC 33.7 g/dl (32.0-36.5); MEAN CORPUSCULAR VOLUME 90.6 fl (80.0-96.0); MONO # 0.4 K/mm3 (0.0-0.8); MONO % 4.7 % (0.0-5.0); NEUTROPHILS # 5.2 K/mm3 (1.8-7.7); NEUTROPHILS % 67.3 % (36.0-66.0); PLATELET COUNT, AUTOMATED 168 k/mm3 (150-450); RED CELL DISTRIBUTION WIDTH 14.3 % (11.5-14.5); WHITE BLOOD COUNT 7.7 K/mm3 (4.0-10.0)
[2016-05-25 22:20] VITALS: BP 131/65
--- NOTE | 2016-05-25 22:30 | REPUSA ---
CLINICAL HISTORY: Pelvic pain. TECHNIQUE: Realtime sonographic images were obtained in multiple projections. COMMENTS: The uterus is anteverted measuring 8.9 x 5.4 x 7.1 x cm. Posterior fibroid measuring 2.5 x 2.2 x 2.5 cm. AP endometrial thickness is 6.3 mm. Endometrial fluid present. Endometrial polyps are measuring 4.6 and 8.1 mm. The right ovary measures 4.4 x 2.9 x 2.8 cm and the left ovary measures 3.3 c 2.1 c 2.0 cm. Both ova rishabh are free of solid or cystic mass. There is a cyst present in the right ovary measuring 3.4 cm. IMPRESSION: 1. Endometrial polyps are measuring 4.6 and 8.1 mm. 2. Posterior fibroid measuring 2.5 x 2.2 x 2.5 cm. 3. There is a cyst present in the right ovary measuring 3.4 cm. Thank you for your kind referral of this patient. We appreciate the opportunity to participate in th is patient's care.
== END | disposition home or self-care (01) ==
LOC: M ED 20:00
DX: N83.209 Unspecified ovarian cyst, unspecified side (principal); D25.9 Leiomyoma of uterus, unspecified; N84.0 Polyp of corpus uteri; E78.00 Pure hypercholesterolemia, unspecified; F41.9 Anxiety disorder, unspecified; F32.9 Major depressive disorder, single episode, unspecified; F43.10 Post-traumatic stress disorder, unspecified; F17.210 Nicotine dependence, cigarettes, uncomplicated; Z79.899 Other long term (current) drug therapy; Z79.82 Long term (current) use of aspirin; N80.9 Endometriosis, unspecified
CPT/HCPCS: 36415; 76856; 85025; 87210; 87491; 87591; 93976; 96374; 96375; 99281; J1885

== ENCOUNTER 2016-06-28 05:49 | Day surgery (SDC) | payer OTHER ==
[2016-06-28] VITALS (7 sets, daily range): BP systolic 106–131; BP diastolic 55–74
[~2016-06-28] VITALS: Ht 170.2 cm; Wt 78.0 kg
[~2016-06-28 05:49] MED LIST changes: -KETOROLAC 30 MG/ML VIAL (J1885) IV ONE; -MORPHINE 4 MG/ML 1ML SYRINGE IV ONE; -NS 1,000 ML IV ONE; +PROZ20CA11 PO
[2016-06-28] MEDS ORDERED: LR 1,000 ML IV SCH ×3 (06:00→12:30)
[2016-06-28 06:31] LABS: MEAN CORPUSCULAR HEMOGLOBIN 30.9 pg (27.0-33.0); MEAN CORPUSCULAR HGB CONC 34.1 g/dl (32.0-36.5); MEAN CORPUSCULAR VOLUME 90.8 fl (80.0-96.0); RED CELL DISTRIBUTION WIDTH 14.1 % (11.5-14.5); WHITE BLOOD COUNT 10.5 K/mm3 (4.0-10.0)
[2016-06-28] MEDS ORDERED: ROCURONIUM BROMIDE 50 MG/5 ML VIAL As Ordered ONE ×2 (07:10→08:21)
[2016-06-28] MEDS ORDERED: ONDANSETRON 4MG/2ML VIAL (J2405) As Ordered ONE (07:10)
[2016-06-28] MEDS ORDERED: METHYLENE BLUE 0.5% (5MG/ML) 10 ML AMP (PROVAYBLUE)(Q9968 PER 1MG) As Ordered ONE (07:10)
[2016-06-28] MEDS ORDERED: PROPOFOL 200 MG/20 ML VIAL As Ordered ONE (07:10)
[2016-06-28] MEDS ORDERED: fentaNYL 100 MCG/2 ML INJECTION (J3010) As Ordered ONE ×2 (07:10→08:09)
[2016-06-28] MEDS ORDERED: LIDOCAINE 2% INJ 100 MG/5 ML SDV (FOR ANES.) As Ordered ONE (07:10)
[2016-06-28] MEDS ORDERED: MIDAZOLAM INJ 2 MG/2 ML VIAL (J2250) As Ordered ONE (07:10)
[2016-06-28] MEDS ORDERED: BUPIVACAINE HCL 0.25% 30 ML VIAL As Ordered ONE (07:10)
[2016-06-28] MEDS ORDERED: KETOROLAC 60 MG/2 ML VIAL (J1885) As Ordered ONE (07:14)
[2016-06-28] MEDS ORDERED: dexameTHASONE 4 MG/ML 1ML VIAL (J1100) As Ordered ONE (07:14)
[2016-06-28] MEDS ORDERED: SEVOFLURANE INHAL SOLN 250 ML BTL As Ordered ONE (07:17)
[2016-06-28] MEDS ORDERED: HYDROmorphone HCL 2 MG/ML 1ML VIAL (J1170) As Ordered ONE (08:44)
[2016-06-28] MEDS ORDERED: GLYCOPYRROLATE INJ 0.2 MG/ML 2 ML VIAL As Ordered ONE (09:53)
[2016-06-28] MEDS ORDERED: SUGAMMADEX SODIUM 500 MG/5 ML VIAL (BRIDION) As Ordered ONE (09:55)
[2016-06-28] MEDS ORDERED: PERCOCET 5MG/325MG TAB PO PRN (10:45)
[2016-06-28] MEDS ORDERED: ONDANSETRON 4MG/2ML VIAL (J2405) IV PRN (10:45)
[2016-06-28] MEDS ORDERED: MORPHINE 4 MG/ML 1ML SYRINGE IV PRN (10:45)
[2016-06-28] MEDS ORDERED: fentaNYL 100 MCG/2 ML INJECTION (J3010) IV PRN (10:45)
[2016-06-28] MEDS ORDERED: PROMETHAZINE INJ 25 MG/ML VIAL (J2550) IV PRN (10:45)
[2016-06-28] MEDS ORDERED: zolPIDEM TARTRATE 10MG TAB PO PRN (10:45)
[2016-06-28] MEDS: HYDROmorphone HCL 1 MG/ML SYRINGE (J1170) IV PRN ×2 (11:00→11:08)
[2016-06-28] MEDS: PERCOCET 5MG/325MG TAB PO PRN ×3 (11:04→18:57)
[2016-06-28] MEDS: KETOROLAC 30 MG/ML VIAL (J1885) IV SCH ×2 (12:49→19:15)
[2016-06-29] VITALS: BP 113/58
[2016-06-29] MEDS: KETOROLAC 30 MG/ML VIAL (J1885) IV SCH ×2 (01:09→06:08)
[2016-06-29 04:00] VITALS: BP 104/58
[2016-06-29] MEDS: PERCOCET 5MG/325MG TAB PO PRN ×2 (04:38→08:55)
[2016-06-29 07:41] LABS: MEAN CORPUSCULAR HEMOGLOBIN 30.6 pg (27.0-33.0); MEAN CORPUSCULAR HGB CONC 34.2 g/dl (32.0-36.5); MEAN CORPUSCULAR VOLUME 89.5 fl (80.0-96.0); RED CELL DISTRIBUTION WIDTH 13.9 % (11.5-14.5); WHITE BLOOD COUNT 9.8 K/mm3 (4.0-10.0)
[2016-06-29 08:00] VITALS: BP 118/60
--- NOTE | 2016-06-29 15:07 | RO ---
DATE OF PROCEDURE: 06/28/2016 PREOPERATIVE DIAGNOSES: 1. Abnormal uterine bleeding. 2. Dysmenorrhea. 3. Pelvic organ prolapse. POSTOPERATIVE DIAGNOSES: 1. Abnormal uterine bleeding. 2. Dysmenorrhea. 3. Pelvic organ prolapse. PROCEDURES PERFORMED: 1. Robotic-assisted laparoscopic hysteroscopy. 2. Robotic-assisted laparoscopic Garay's culdoplasty. 3. Bilateral salpingectomy. 4. Cystoscopy. SURGEON: Samara Hernandez MD PC ANALYST: GISELE Delgado ANESTHESIA: General endotracheal anesthesia. ESTIMATED BLOOD LOSS: 50 mL. INTRAVENOUS FLUID: 1 liter of lactated Ringer's solution. URINE OUTPUT: 200 mL SPECIMENS: Cervix. Uterus. Bilateral fallopian tubes. PREOPERATIVE ANTIBIOTICS: 2 grams of Ancef. INFECTION CLASSIFICATION: II. OPERATIVE FINDINGS: Normal appearing uterus, bilateral adnexa. CYSTOSCOPIC FINDINGS: Revealed normal bladder mucosa. No foreign bodies were visualized. Bilateral ureter jets were observed. DESCRIPTION OF OPERATION: After informed consent was obtained and written consent was reviewed, the patient was brought to the operating room where she was placed under general endotracheal anesthesia. She was then placed in the lithotomy position and was prepped and draped in normal sterile fashion. A time-out in the operating room was then performed identifying the patient, procedure to be performed, as well as drug allergies. A speculum was placed revealing the cervix. The anterior and posterior aspect of the cervix was stitched with #0 Vicryl. The uterus was then sounded to 7 cm. An extra large V-care uterine manipulator was then advanced into the cervical os for me to manipulate the uterus. The intrauterine balloon was insufflated with 10 mL of air. Cervical cap was placed over the cervix. The vaginal sleeve was advanced down to the vagina. Instruments were removed from the patient's vagina. Vega catheter was then placed and sent to gravity. Gloves were changed and attention was turned to the patient's abdomen where a Veress needle was placed in the umbilicus. A pneumoperitoneum was then obtained with CO2 gas. The supraumbilical area was then infused with 0.25% Marcaine. An incision was made in this area, and a 12 mm trocar sleeve was advanced through this incision. The laparoscope was then replaced revealing intra-abdominal placement. Two lateral ports left and to the right of the umbilicus were placed. Each of these ports were infused with 0.25% Marcaine. Incision was made in each one of these areas, and 8 mm trocars and sleeves were advanced through each one of these incisions under direct visualization. A fourth trocar was placed in the left side of the patient's abdomen. This area was infused with 0.25% Marcaine, and an incision was made in this area. Another 8 mm trocar sleeve was advanced through this incision under direct visualization. Next, the Da Joss was then advanced to the patient's table and was docked utilizing the camera arm and two operative arms. Utilizing Da Joss equipment with bipolar cautery, a bilateral salpingectomy was performed. The right fallopian tube was placed on traction. The mesosalpinx was then cauterized and ligated with good hemostasis noted and was transected from the uterus. The specimen was then brought out through the incision and, in a similar fashion, the left fallopian tube was placed on traction. Dissection was performed along the mesosalpinx, and the fallopian tube was transected at the uterus. This specimen was also brought through the incision. Next, the utero-ovarian ligaments were then cauterized and ligated with good hemostasis noted bilaterally. The round ligaments on both sides were then cauterized and ligated with good hemostasis noted. The anterior lip of the broad ligaments were then dissected along the bladder, creating a bladder flap. The remainder of the broad ligaments and cardinal ligaments were then cauterized and ligated with hemostasis noted. The uterine artery was then skeletonized bilaterally and was cauterized and ligated with hemostasis noted. Next, anterior and posterior colpotomies were made and the uterus was removed vaginally. Good hemostasis was noted. Garay's culdoplasty: The uterosacral ligaments were then tagged. Using #0 Vicryl, this was passed through the posterior vaginal cuff out to the left uterosacral incorporating the peritoneum and then passing the suture through the right uterosacral out through the vaginal cuff. Suture was then tied, suspending the vagina. Next, the vaginal cuff was then closed using #2-0 V-Loc system in a running fashion. Surgical sites were inspected and noted to be hemostatic. Aaliyah was then applied over the surgical field. Next, a cystoscopy was performed. The Vega catheter was removed. The cystoscope was advanced through the urethra. The cystoscopy was performed revealing normal bladder mucosa with bilateral jets. The bladder was then drained. Gloves were changed, and attention was turned to the patient's abdomen where all four skin incisions were closed with #4-0 Monocryl and was dressed with Dermabond. The patient was then taken out of the lithotomy position and was awakened from general anesthesia and taken to recovery in stable condition. Anny Mccartney, my assistant pressman, played a central role during this operation. She assisted with identification of vital structures, manipulation, port placement, as well as skin closure. Counts were correct. MTDD
== END 2016-06-29 11:58 | disposition home or self-care (01) ==
LOC: M SDC 05:49 → M PED 11:58 → M SDC 06-29 11:58
PROVIDERS: ATTEND Obstetrics & Gynecology
DX: N93.9 Abnormal uterine and vaginal bleeding, unspecified (principal); N94.6 Dysmenorrhea, unspecified; N81.2 Incomplete uterovaginal prolapse; F41.9 Anxiety disorder, unspecified; F32.9 Major depressive disorder, single episode, unspecified; Z79.899 Other long term (current) drug therapy; Z79.82 Long term (current) use of aspirin
CPT/HCPCS: 36415; 58571; 85027; 86850; 86900; 86901; 88305; 96374; 96375; A6024; J0690; J1100; J1170; J1885; J2250; J2405; J3010; Q9968

== ENCOUNTER 2016-09-04 08:37 | Day surgery (SDC) | payer OTHER ==
[~2016-09-04] VITALS: Ht 167.6 cm; Wt 79.4 kg
[2016-09-04] VITALS (7 sets, daily range): BP systolic 91–114; BP diastolic 50–60
[2016-09-04 10:03] LABS: BASO # 0.2 K/mm3 (0.0-0.2); BASO % 1.9 % (0.0-1.0); EOS # 0.1 K/mm3 (0.0-0.50); EOS % 0.6 % (0.0-3.0); LARGE UNSTAINED CELL # 0.2 K/mm3 (0.0-0.4); LARGE UNSTAINED CELL % 1.9 % (0.0-4.0); LYMPH # 3.3 K/mm3 (1.5-4.5); LYMPH % 25.4 % (24.0-44.0); MEAN CORPUSCULAR HEMOGLOBIN 31.2 pg (27.0-33.0); MEAN CORPUSCULAR HGB CONC 34.8 g/dl (32.0-36.5); MEAN CORPUSCULAR VOLUME 89.6 fl (80.0-96.0); MONO # 0.4 K/mm3 (0.0-0.8); MONO % 3.1 % (0.0-5.0); NEUTROPHILS # 8.6 K/mm3 (1.8-7.7); NEUTROPHILS % 67.1 % (36.0-66.0); PLATELET COUNT, AUTOMATED 172 k/mm3 (150-450); RED CELL DISTRIBUTION WIDTH 13.8 % (11.5-14.5); WHITE BLOOD COUNT 12.8 K/mm3 (4.0-10.0)
[2016-09-04] MEDS: NS 1,000 ML IV SCH ×2 (10:05→10:40)
[2016-09-04 10:15] LABS: ANION GAP 7 MEQ/L (8-16); BLOOD UREA NITROGEN 16 MG/DL (7-18); CALCIUM LEVEL 8.8 MG/DL (8.5-10.1); CARBON DIOXIDE LEVEL 25 MEQ/L (21-32); CHLORIDE LEVEL 109 MEQ/L (98-107); CREATININE FOR GFR 0.79 MG/DL (0.55-1.02); GLOMERULAR FILTRATION RATE > 60.0 (>60); GLUCOSE, FASTING 115 MG/DL (70-105); POTASSIUM SERUM 3.4 MEQ/L (3.5-5.1); SODIUM LEVEL 141 MEQ/L (136-145)
[2016-09-04] MEDS ORDERED: MORPHINE 4 MG/ML 1ML SYRINGE IV ONE (10:30)
[2016-09-04] MEDS ORDERED: ONDANSETRON 4MG/2ML VIAL (J2405) IV ONE (10:30)
--- NOTE | 2016-09-04 11:36 | REP ---
ABDOMINAL SERIES: REASON FOR EXAM: Abdominal pain. COMPARISON: Chest 05/24/2011. FINDINGS: Supine and upright views of the abdomen show the intestinal gas pattern to be nonspecific. Gas and stool is seen throughout the colon within the rectosigmoid region. The organ silhouettes insofar as delineated appear unremarkable. No abdominal calcific densities are seen within the abdomen or pelvis. The accompanying single frontal view of the chest shows no free subdiaphragmatic air, cardiomegaly, infiltrates or effusions. IMPRESSION: Nonspecific intestinal gas pattern. The frontal view of the chest is unchanged from the prior exam. Signed by Zach Salmeron DO 09/04/2016 03:58 P
[2016-09-04] MEDS ORDERED: MORPHINE 10 MG/ML 1ML VIAL As Ordered ONE (12:25)
[2016-09-04] MEDS ORDERED: UNASYN 3 GM VIAL As Ordered ONE (12:25)
[2016-09-04] MEDS ORDERED: AMPICILLIN SOD/SULBACTAM SOD 3 GM in D5W MINI-BAG PLUS 100 ML IV ONE (12:45)
[2016-09-04] MEDS ORDERED: MORPHINE 10 MG/ML 1ML VIAL IV ONE (12:45)
[2016-09-04] MEDS ORDERED: CETACAINE SPRAY 20GM (FLOOR STOCK) As Ordered ONE (12:50)
[2016-09-04] MEDS ORDERED: IBUPOTC PO (12:56)
[2016-09-04] MEDS ORDERED: LIDOCAINE 2% JELLY 30 ML As Ordered ONE (13:30)
[2016-09-04] MEDS ORDERED: BUPIVACAINE HCL 0.25% 30 ML VIAL As Ordered ONE (13:46)
[2016-09-04] MEDS ORDERED: fentaNYL 100 MCG/2 ML INJECTION (J3010) As Ordered ONE (13:54)
[2016-09-04] MEDS ORDERED: MIDAZOLAM INJ 2 MG/2 ML VIAL (J2250) As Ordered ONE (13:54)
[2016-09-04] MEDS ORDERED: PROPOFOL 200 MG/20 ML VIAL As Ordered ONE (13:55)
[2016-09-04] MEDS ORDERED: ROCURONIUM BROMIDE 50 MG/5 ML VIAL As Ordered ONE (13:55)
[2016-09-04] MEDS ORDERED: LIDOCAINE 2% INJ 100 MG/5 ML SDV (FOR ANES.) As Ordered ONE (13:55)
[2016-09-04] MEDS ORDERED: KETOROLAC 30 MG/ML VIAL (J1885) As Ordered ONE (15:13)
[2016-09-04] MEDS ORDERED: HYDROmorphone HCL 1 MG/ML SYRINGE (J1170) As Ordered ONE (15:13)
[2016-09-04] MEDS: KETOROLAC 30 MG/ML VIAL (J1885) IV SCH ×2 (15:16→22:10)
[2016-09-04] MEDS: HYDROmorphone HCL 1 MG/ML SYRINGE (J1170) IV PRN ×5 (15:17→15:50)
[2016-09-04] MEDS: LR 1,000 ML IV SCH (15:45)
[2016-09-04] MEDS ORDERED: LR 1,000 ML IV SCH (15:45)
[2016-09-04] MEDS ORDERED: fentaNYL 100 MCG/2 ML INJECTION (J3010) IV PRN (15:45)
[2016-09-04] MEDS ORDERED: ONDANSETRON 4MG/2ML VIAL (J2405) IV PRN (15:45)
[2016-09-04] MEDS ORDERED: PROMETHAZINE INJ 25 MG/ML VIAL (J2550) IV PRN (16:00)
[2016-09-04] MEDS ORDERED: PERCOCET 5MG/325MG TAB PO PRN (16:00)
[2016-09-04] MEDS ORDERED: MORPHINE 10 MG/ML 1ML VIAL IV PRN (16:00)
--- NOTE | 2016-09-04 16:47 | REP ---
CHEST, ONE VIEW: REASON: Post-op. COMPARISON: 09/04/2016 at 10:48 a.m. There is a right sided internal jugular central venous catheter, the tip of which is in the superior vena cava. The lungs are clear and the heart is not enlarged. There is no change in the osseous structures. IMPRESSION: No acute cardiopulmonary disease. Findings as described above. Signed by Zach Salmeron DO 09/04/2016 05:04 P
[2016-09-04] MEDS: metroNIDAZOLE 500 MG in APPROPRIATE DILUENT 1 EA IV SCH (17:10)
[2016-09-04] MEDS: PERCOCET 5MG/325MG TAB PO PRN (18:16)
--- NOTE | 2016-09-04 19:13 | RO ---
DATE OF PROCEDURE: 09/04/2016 PREPROCEDURE DIAGNOSIS: Vaginal cuff dehiscence. POSTPROCEDURE DIAGNOSIS: Vaginal cuff dehiscence. OPERATIVE PROCEDURE: Exam under anesthesia with vaginal closure. SURGEON: Samara Hernandez MD HOST/HOSTESS: Michael Weaver DO ANESTHESIA: General endotracheal anesthesia. ESTIMATED BLOOD LOSS: 100 mL INTRAVENOUS FLUIDS: 200 mL of lactated Ringers solution. URINE OUTPUT: 500 mL PREOPERATIVE ANTIBIOTICS: 3 grams Unasyn. SPECIMENS: None. OPERATIVE FINDINGS: Patient with complete dehiscence of vaginal cuff. There appeared to be some epiploic in the vaginal cuff, which was reduced with Trendelenburg positioning. No bowel is noted. No active bleeding. INDICATION FOR OPERATION: Mrs. Gardiner is a 36-year-old 6, para 5, who presents postoperative from a robotic-assisted laparoscopic hysterectomy on June 28, 2016 this year. She has been seen for a two week followup, but had canceled without rescheduling her 6 week postoperative visit. She did reports during intercourse this morning experiencing bleeding with passage of large clots followed by pain and was taken to the emergency room and evaluated. In the ER she had evaluation with x-ray. Showed no free fluid, but on exam that was performed by myself, I noted separation of vaginal cuff at which time she was consented for surgical repair of vaginal cuff. DESCRIPTION OF OPERATION: After informed consent was obtained and written consent was reviewed, the patient was brought to the operating room where general anesthesia was obtained. She was then placed in a lithotomy position and was prepped and draped in a normal sterile fashion. A time out in the operating room was then performed identifying the patient, the procedure to be performed as well as drug allergies. A Vega catheter was placed and set to gravity. Then using a set of retractors, right angle and weighted speculum were placed into the vagina revealing the vaginal defect. The area was then irrigated with copious amounts of saline. The vaginal cuff edges were then placed on traction using Allis clamps. The tissue appeared to be non-necrotic, well-appearing. The peritoneum was then identified and this was first closed using a #3-0 chromic in a purse-string fashion. Next using #0 Vicryl the vaginal cuff was closed with full thickness passage of suture and four [id number] interrupted sutures. The area was once again copiously irrigated. Surgical sites appeared to be hemostatic. The patient was then awakened from general anesthesia and taken to recovery in stable condition. Counts were correct. MTDD
[2016-09-04] MEDS: LevoFLOXacin IV 750 MG in APPROPRIATE DILUENT 1 EA IV SCH (20:13)
[2016-09-05] VITALS: BP 95/56
[2016-09-05] MEDS: metroNIDAZOLE 500 MG in APPROPRIATE DILUENT 1 EA IV SCH ×3 (00:27→16:32)
[2016-09-05] MEDS: LR 1,000 ML IV SCH (00:27)
[2016-09-05] MEDS: PERCOCET 5MG/325MG TAB PO PRN ×4 (00:28→17:39)
[2016-09-05] MEDS: KETOROLAC 30 MG/ML VIAL (J1885) IV SCH ×4 (03:55→20:23)
[2016-09-05 04:00] VITALS: BP 97/50
[2016-09-05 08:00] VITALS: BP 99/56
[2016-09-05 09:25] LABS: MEAN CORPUSCULAR HEMOGLOBIN 30.9 pg (27.0-33.0); MEAN CORPUSCULAR HGB CONC 34.4 g/dl (32.0-36.5); MEAN CORPUSCULAR VOLUME 89.9 fl (80.0-96.0); WHITE BLOOD COUNT 5.2 K/mm3 (4.0-10.0)
[2016-09-05 16:00] VITALS: BP 119/67
[2016-09-05] MEDS: LevoFLOXacin IV 750 MG in APPROPRIATE DILUENT 1 EA IV SCH (17:38)
[2016-09-05] MEDS ORDERED: PERCOCET PO (17:46)
[2016-09-05] MEDS ORDERED: IBUP800T23 PO (17:49)
[2016-09-05 20:00] VITALS: BP 129/65
[2016-09-06] VITALS: BP 133/86
[2016-09-06] MEDS: metroNIDAZOLE 500 MG in APPROPRIATE DILUENT 1 EA IV SCH ×2 (00:26→08:34)
[2016-09-06] MEDS: PERCOCET 5MG/325MG TAB PO PRN ×2 (00:26→12:35)
[2016-09-06] MEDS: KETOROLAC 30 MG/ML VIAL (J1885) IV SCH ×2 (03:38→08:33)
[2016-09-06 08:00] VITALS: BP 119/72
== END 2016-09-06 14:25 | disposition home or self-care (01) ==
LOC: M ED 10:06 → M SDC 12:36 → M PED 16:17 → M SDC 09-06 14:25
PROVIDERS: ATTEND Obstetrics & Gynecology
DX: T81.31XA Disruption of external operation (surgical) wound, not elsewhere classified, initial encounter (principal); E78.4 Other hyperlipidemia; F17.210 Nicotine dependence, cigarettes, uncomplicated; Z79.899 Other long term (current) drug therapy; N93.8 Other specified abnormal uterine and vaginal bleeding

== ENCOUNTER → 2017-07-02 | Outpatient (REF) | payer OTHER ==
[2017-07-02 19:56] LABS: CHLAMYDIA DNA AMPLIFICATION NEGATIVE (NEGATIVE); GC DNA AMPLIFICATION NEGATIVE (NEGATIVE)
== END ==
LOC: M LAB REF 16:38
DX: N76.0 Acute vaginitis (principal)

== ENCOUNTER 2017-09-09 16:41 | Outpatient (CLI) | payer MEDICAID ==
[2017-09-10 09:48] LABS: CHOLESTEROL LEVEL 187 MG/DL (<200); CHOLESTEROL RISK RATIO 4.921 (<5); HDL CHOLESTEROL 38 MG/DL (>40); LDL CHOLESTEROL 113.4 MG/DL (<100); NON-HDL-C 149 MG/DL; TRIGLYCERIDES LEVEL 178 MG/DL (<150)
== END 2017-09-10 ==
LOC: M ED 16:41
DX: E78.1 Pure hyperglyceridemia (principal)
CPT/HCPCS: 80061

== ENCOUNTER 2017-09-09 16:44 | Outpatient (CLI) | payer MEDICAID ==
[2017-09-10 09:45] LABS: ALBUMIN 3.7 GM/DL (3.2-5.2); ALBUMIN/GLOBULIN RATIO 1.12 (1.00-1.93); ALKALINE PHOSPHATASE 74 U/L (45-117); ALT/SGPT 61 U/L (12-78); ANION GAP 9 MEQ/L (8-16); AST/SGOT 49 U/L (7-37); BILIRUBIN,TOTAL 1.2 MG/DL (0.2-1.0); BLOOD UREA NITROGEN 12 MG/DL (7-18); CALCIUM LEVEL 8.4 MG/DL (8.5-10.1); CARBON DIOXIDE LEVEL 23 MEQ/L (21-32); CHLORIDE LEVEL 109 MEQ/L (98-107); CREATININE FOR GFR 0.59 MG/DL (0.55-1.30); GLOMERULAR FILTRATION RATE > 60.0 (>60); GLUCOSE, FASTING 111 MG/DL (70-100); POTASSIUM SERUM 4.6 MEQ/L (3.5-5.1); SODIUM LEVEL 141 MEQ/L (136-145)
[2017-09-10 10:28] LABS: HEPATITIS B SURFACE ANTIGEN NEGATIVE (NEGATIVE)
[2017-09-10 10:52] LABS: HIV 1&2 SCREEN CENTAUR NEGATIVE (NEGATIVE)
[2017-09-10 11:11] LABS: HEPATITIS C VIRUS ABY INDEX > 11.0 INDEX (<0.8)
[2017-09-10 13:36] LABS: CHLAMYDIA DNA AMPLIFICATION NEGATIVE (NEGATIVE); GC DNA AMPLIFICATION NEGATIVE (NEGATIVE)
[2017-09-10 15:46] LABS: HEMATOCRIT 41.4 % (36.0-47.0); HEMOGLOBIN 14.2 g/dl (12.0-15.5); MEAN CORPUSCULAR HEMOGLOBIN 31.3 pg (27.0-33.0); MEAN CORPUSCULAR HGB CONC 34.3 g/dl (32.0-36.5); MEAN CORPUSCULAR VOLUME 91.4 fl (80.0-96.0); PLATELET COUNT, AUTOMATED 178 10^3/uL (150-450); RED BLOOD COUNT 4.53 10^6/uL (4.00-5.40); RED CELL DISTRIBUTION WIDTH 14.4 % (11.5-14.5); WHITE BLOOD COUNT 8.2 10^3/uL (4.0-10.0)
[2017-09-13 10:13] LABS: HCV RNA NAA QUALITATIVE Positive (Negative)
== END 2017-09-10 ==
LOC: M LAB 16:44
DX: F11.20 Opioid dependence, uncomplicated (principal)
CPT/HCPCS: 93005

== ENCOUNTER 2017-09-16 15:27 | Emergency (ER) | payer MEDICAID ==
[2017-09-16] MEDS: KETOROLAC TROMETHAMINE 10 MG TAB PO (16:05)
[2017-09-16 16:23] LABS: BASO % 0.5 % (0.0-1.0); HEMATOCRIT 39.4 % (36.0-47.0); HEMOGLOBIN 12.9 g/dl (12.0-15.5); IMMATURE GRANULOCYTE % 0.3 % (0-3.0); LYMPH # 1.7 10^3/uL (1.5-4.5); LYMPH % 30.2 % (24.0-44.0); MEAN CORPUSCULAR HEMOGLOBIN 31.3 pg (27.0-33.0); MEAN CORPUSCULAR HGB CONC 32.7 g/dl (32.0-36.5); MEAN CORPUSCULAR VOLUME 95.6 fl (80.0-96.0); MONO # 0.4 10^3/uL (0.0-0.8); NEUTROPHILS # 3.5 10^3/uL (1.8-7.7); PLATELET COUNT, AUTOMATED 151 10^3/uL (150-450); RED BLOOD COUNT 4.12 10^6/uL (4.00-5.40); RED CELL DISTRIBUTION WIDTH 14.7 % (11.5-14.5); WHITE BLOOD COUNT 5.7 10^3/uL (4.0-10.0)
[2017-09-16 16:44] LABS: ANION GAP 7 MEQ/L (8-16); BLOOD UREA NITROGEN 8 MG/DL (7-18); CARBON DIOXIDE LEVEL 28 MEQ/L (21-32); CHLORIDE LEVEL 109 MEQ/L (98-107); CREATININE FOR GFR 0.53 MG/DL (0.55-1.30); GLOMERULAR FILTRATION RATE > 60.0 (>60); GLUCOSE, FASTING 115 MG/DL (70-100); POTASSIUM SERUM 3.4 MEQ/L (3.5-5.1); SODIUM LEVEL 144 MEQ/L (136-145)
[2017-09-16] MEDS: FUROSEMIDE 40 MG TAB PO (17:20)
== END 2017-09-16 17:38 | disposition home or self-care (01) ==
LOC: M ED 15:27
DX: R20.2 Paresthesia of skin (principal); E78.00 Pure hypercholesterolemia, unspecified; F17.200 Nicotine dependence, unspecified, uncomplicated
CPT/HCPCS: 71046

== ENCOUNTER → 2017-10-04 | Outpatient (REF) | payer MEDICAID ==
[2017-10-05 10:38] LABS: AMORPHOUS SEDIMENT LARGE (NEGATIVE); APPEARANCE, URINE TURBID (CLEAR); BACTERIA, URINE AUTO NEGATIVE (NEGATIVE); BILIRUBIN, URINE AUTO 2+ (NEGATIVE); BLOOD, URINE BLOOD NEGATIVE (NEGATIVE); COLOR, URINE YELLOW (YELLOW); GLUCOSE, URINE (UA) AUTO NEGATIVE (NEGATIVE); KETONE, URINE AUTO TRACE mg/dL (NEGATIVE); LEUKOCYTE ESTERASE, URINE AUTO NEGATIVE (NEGATIVE); MUCUS, URINE MODERATE (NEGATIVE); NITRITE, URINE AUTO NEGATIVE (NEGATIVE); PROTEIN, URINE AUTO 1+ mg/dL (NEGATIVE); RBC, URINE AUTO 0 /HPF (0-3); SPECIFIC GRAVITY URINE AUTO 1.033 (1.002-1.035); SQUAMOUS EPITHELIAL CELL UR AU 5 /HPF (0-6); WBC, URINE AUTO 0 /HPF (0-3)
== END ==
LOC: M SFHCPLAZ 10:21
DX: M79.89 Other specified soft tissue disorders (principal)

== ENCOUNTER → 2017-10-12 | Outpatient (CLI) | payer MEDICAID ==
[2017-10-12 13:16] LABS: APPEARANCE, URINE CLOUDY (CLEAR); BACTERIA, URINE AUTO 1+ (NEGATIVE); BILIRUBIN, URINE AUTO 1+ (NEGATIVE); BLOOD, URINE BLOOD NEGATIVE (NEGATIVE); COLOR, URINE AMBER (YELLOW); GLUCOSE, URINE (UA) AUTO NEGATIVE (NEGATIVE); KETONE, URINE AUTO NEGATIVE (NEGATIVE); LEUKOCYTE ESTERASE, URINE AUTO NEGATIVE (NEGATIVE); MUCUS, URINE LARGE (NEGATIVE); NITRITE, URINE AUTO NEGATIVE (NEGATIVE); PROTEIN, URINE AUTO NEGATIVE (NEGATIVE); RBC, URINE AUTO 3 /HPF (0-3); SPECIFIC GRAVITY URINE AUTO 1.023 (1.002-1.035); SQUAMOUS EPITHELIAL CELL UR AU 23 /HPF (0-6); WBC, URINE AUTO 4 /HPF (0-3)
[2017-10-12 13:42] LABS: CORTISOL AM 4.1 UG/DL (4.3-22.4)
[2017-10-12 13:51] LABS: ALBUMIN 4.1 GM/DL (3.2-5.2); ALBUMIN/GLOBULIN RATIO 1.28 (1.00-1.93); ALKALINE PHOSPHATASE 78 U/L (45-117); ALT/SGPT 43 U/L (12-78); ANION GAP 9 MEQ/L (8-16); AST/SGOT 35 U/L (7-37); BILIRUBIN,TOTAL 1.4 MG/DL (0.2-1.0); BLOOD UREA NITROGEN 12 MG/DL (7-18); CALCIUM LEVEL 8.7 MG/DL (8.5-10.1); CARBON DIOXIDE LEVEL 27 MEQ/L (21-32); CHLORIDE LEVEL 105 MEQ/L (98-107); CREATININE FOR GFR 0.64 MG/DL (0.55-1.30); GLOMERULAR FILTRATION RATE > 60.0 (>60); GLUCOSE, FASTING 74 MG/DL (70-100); NT-PRO BNP 66 PG/ML (<125); SODIUM LEVEL 141 MEQ/L (136-145); THYROID STIMULATING HORMONE 0.602 uIU/ML (0.358-3.740); TOTAL PROTEIN 7.3 GM/DL (6.4-8.2)
[2017-10-12 14:30] LABS: ESTIMATED AVERAGE GLUCOSE 85 MG/DL (60-110); HEMOGLOBIN A1c 4.6 %
[2017-10-19 09:17] LABS: SUMMARY SEE SEPARATE REPORT
== END ==
LOC: M LAB 10:43
DX: M79.89 Other specified soft tissue disorders (principal); R63.1 Polydipsia
CPT/HCPCS: 84443

== ENCOUNTER → 2017-10-12 | Outpatient (CLI) | payer MEDICAID ==
[~2017-10-12] MED LIST changes: -ASPI1TAB PO; -BUSP10TA PO; -FLUO10CA9 PO; +ISOVUE-370 76% 100ML VIAL (Q9967) As Ordered; -LOVA20TA2 PO; -NORCOTAB PO; -PROZ20CA11 PO; -TRAZ150T14 PO; -VITMTA PO
== END ==
LOC: M RAD 10:59
DX: D37.02 Neoplasm of uncertain behavior of tongue (principal)
CPT/HCPCS: Q9967

== ENCOUNTER → 2017-11-13 | Outpatient (REF) | payer MEDICAID ==
[2017-11-13 16:44] LABS: ALBUMIN/GLOBULIN RATIO 1.14 (1.00-1.93); ALKALINE PHOSPHATASE 108 U/L (45-117); ALT/SGPT 69 U/L (12-78); AST/SGOT 43 U/L (7-37); BILIRUBIN,DIRECT 0.6 MG/DL (0.0-0.2); BILIRUBIN,TOTAL 1.8 MG/DL (0.2-1.0); TOTAL PROTEIN 7.5 GM/DL (6.4-8.2)
[2017-11-14 10:55] LABS: HEPATITIS B SURFACE ANTIBODY NEGATIVE (POSITIVE)
[2017-11-21 00:07] LABS: ALPHA 2-MACROGLOBULIN 229 mg/dL (110-276); ALT 60 IU/L (0-40); APOLIPOPROTEIN A-1 131 mg/dL (116-209); FIBROSIS SCORE 0.51 (0.00-0.21); GGT 184 IU/L (0-60); HAPTOGLOBIN 175 mg/dL (34-200); HEPATITIS A IgG TOTAL Negative (Negative); HEPATITIS B CORE ANTIBODY IGG Negative (Negative); HEPATITIS C QUANTITATION 2110 IU/mL (.); HEPATITIS C VIRUS GENOTYPE 3 (.); NECROINFLAM SCORE 0.43 (0.00-0.17); NECROINFLAMM GRADE A1-A2 (.); TOTAL BILIRUBIN 1.5 mg/dL (0.0-1.2)
== END ==
LOC: M SFHCPLAZ 13:19
DX: B19.20 Unspecified viral hepatitis C without hepatic coma (principal)

== ENCOUNTER 2017-12-10 11:05 | Emergency (ER) | payer MEDICAID | END 2017-12-10 11:58 | disposition home or self-care (01) | LOC: M ED 11:05 | DX: J01.80 Other acute sinusitis (principal); I51.9 Heart disease, unspecified; I50.9 Heart failure, unspecified; Z72.0 Tobacco use; Z79.899 Other long term (current) drug therapy | CPT/HCPCS: 87880 ==

== ENCOUNTER → 2017-12-27 | Outpatient (REF) | payer OTHER | LOC: M SFHCPLAZ 15:33 | DX: Z53.9 Procedure and treatment not carried out, unspecified reason (principal) ==

== ENCOUNTER 2018-01-25 19:51 | Emergency (ER) | payer OTHER ==
[2018-01-25] MEDS: MORPHINE 4 MG/ML 1ML VIAL/SYRINGE (J2270) IV (21:30)
[2018-01-25 22:06] LABS: BASO % 0.2 % (0.0-1.0); EOS % 0.1 % (0.0-3.0); IMMATURE GRANULOCYTE % 0.2 % (0-3.0); LYMPH # 1.9 10^3/uL (1.5-4.5); LYMPH % 17.8 % (24.0-44.0); MEAN CORPUSCULAR HEMOGLOBIN 30.4 pg (27.0-33.0); MEAN CORPUSCULAR HGB CONC 32.5 g/dl (32.0-36.5); MEAN CORPUSCULAR VOLUME 93.5 fl (80.0-96.0); MONO # 0.8 10^3/uL (0.0-0.8); MONO % 7.5 % (0.0-5.0); NEUTROPHILS # 7.8 10^3/uL (1.8-7.7); NEUTROPHILS % 74.2 % (36.0-66.0); PLATELET COUNT, AUTOMATED 134 10^3/uL (150-450); RED BLOOD COUNT 4.28 10^6/uL (4.00-5.40); RED CELL DISTRIBUTION WIDTH 14.6 % (11.5-14.5); WHITE BLOOD COUNT 10.6 10^3/uL (4.0-10.0)
[2018-01-25 22:27] LABS: ERYTHROCYTE SEDIMENTATION RATE 6 mm/hr (0-20)
[2018-01-25 22:30] LABS: LACTIC ACID SEPSIS PROTOCOL 0.9 MMOL/L (0.4-2.0)
[2018-01-25] MEDS: CLINDAMYCIN 900 MG in APPROPRIATE DILUENT 1 EA IV (22:30)
[2018-01-25] MEDS: methylPREDNISolone INJ 125 MG/2 ML VIAL (J2930) IV (22:30)
[2018-01-25] MEDS: NS 1,000 ML IV (22:30)
[2018-01-25 22:54] LABS: AMPHETAMINES LEVEL URINE NEGATIVE (NEGATIVE); BARBITURATES URINE NEGATIVE (NEGATIVE); BENZODIAZEPINES URINE NEGATIVE (NEGATIVE); CANNABINOIDS URINE NEGATIVE (NEGATIVE); COCAINE METABOLITE URINE NEGATIVE (NEGATIVE); METHADONE URINE NEGATIVE (NEGATIVE); OPIATES URINE NEGATIVE (NEGATIVE); PHENCYCLIDINE URINE NEGATIVE (NEGATIVE)
[2018-01-25 22:56] LABS: CONTROL LINE HCG INT CTR LINE PRESENT; HCG, SERUM QUALITATIVE NEGATIVE (NEGATIVE)
[2018-01-25 23:09] LABS: ANION GAP 7 MEQ/L (8-16); BLOOD UREA NITROGEN 9 MG/DL (7-18); C REACTIVE PROTEIN QUANTITATIV 3.03 MG/DL (0.00-0.30); CALCIUM LEVEL 8.1 MG/DL (8.5-10.1); CARBON DIOXIDE LEVEL 24 MEQ/L (21-32); CHLORIDE LEVEL 108 MEQ/L (98-107); CREATININE FOR GFR 0.47 MG/DL (0.55-1.30); GLOMERULAR FILTRATION RATE > 60.0 (>60); GLUCOSE, FASTING 111 MG/DL (70-100); POTASSIUM SERUM 3.9 MEQ/L (3.5-5.1); SODIUM LEVEL 139 MEQ/L (136-145)
[2018-01-26] MEDS: MORPHINE 4 MG/ML 1ML VIAL/SYRINGE (J2270) IV (00:14)
[2018-01-26] MEDS: BACTRIM 160MG/800MG DS TAB PO (00:19)
== END 2018-01-26 01:28 | disposition home or self-care (01) ==
LOC: M ED 01-26 01:28
DX: L02.811 Cutaneous abscess of head [any part, except face] (principal); L03.811 Cellulitis of head [any part, except face]; I50.9 Heart failure, unspecified; E78.5 Hyperlipidemia, unspecified; R87.810 Cervical high risk human papillomavirus (HPV) DNA test positive; Z87.828 Personal history of other (healed) physical injury and trauma; F17.200 Nicotine dependence, unspecified, uncomplicated
CPT/HCPCS: J2270

== ENCOUNTER 2018-01-27 15:51 | Emergency (ER) | payer OTHER | END 2018-01-27 16:20 | disposition home or self-care (01) | LOC: M ED 15:51 | DX: L03.211 Cellulitis of face (principal); Z79.899 Other long term (current) drug therapy; F17.210 Nicotine dependence, cigarettes, uncomplicated | CPT/HCPCS: 99282 ==

== ENCOUNTER 2018-03-01 12:38 | Day surgery (SDC) | payer MEDICAID ==
[~2018-03-01 12:38] MED LIST changes: -ISOVUE-370 76% 100ML VIAL (Q9967) As Ordered; +KETOROLAC 60 MG/2 ML VIAL (J1885) As Ordered; +LIDOCAINE 2% INJ 100 MG/5 ML SDV (FOR ANES.) As Ordered; +MIDAZOLAM INJ 2 MG/2 ML VIAL (J2250) As Ordered; +ONDANSETRON 4MG/2ML VIAL (J2405) As Ordered; +PROPOFOL 200 MG/20 ML VIAL As Ordered; +dexameTHASONE 4 MG/ML 1ML VIAL (J1100) As Ordered; +fentaNYL 100 MCG/2 ML INJECTION (J3010) As Ordered
[2018-03-01] MEDS: LR 1,000 ML IV (13:21)
[2018-03-01 14:59] LABS: HEMATOCRIT 43.2 % (36.0-47.0); HEMOGLOBIN 14.3 g/dl (12.0-15.5); MEAN CORPUSCULAR HEMOGLOBIN 30.4 pg (27.0-33.0); MEAN CORPUSCULAR HGB CONC 33.1 g/dl (32.0-36.5); MEAN CORPUSCULAR VOLUME 91.9 fl (80.0-96.0); PLATELET COUNT, AUTOMATED 174 10^3/uL (150-450); RED CELL DISTRIBUTION WIDTH 14.7 % (11.5-14.5); WHITE BLOOD COUNT 7.9 10^3/uL (4.0-10.0)
[2018-03-01] MEDS: BUPIVACAINE/EPIN 0.25% 30 ML VIAL As Ordered (15:50)
[2018-03-01] MEDS ORDERED: PHENYLephrine HCL 500 MCG/5 ML (100MCG/ML) SYRINGE (J2370) As Ordered (16:37)
[2018-03-01] MEDS ORDERED: LR 1,000 ML IV (17:15)
[2018-03-01] MEDS ORDERED: PERCOCET 5MG/325MG TAB PO (17:15)
[2018-03-01] MEDS ORDERED: MEPERIDINE INJ 25 MG/ML VIAL (J2175) IV (17:15)
[2018-03-01] MEDS ORDERED: METOCLOPRAMIDE INJ 10MG/2ML VIAL (J2765) IV (17:15)
[2018-03-01] MEDS ORDERED: fentaNYL 100 MCG/2 ML INJECTION (J3010) IV (17:15)
[2018-03-01] MEDS: PERCOCET 5MG/325MG TAB PO (18:15)
[2018-03-01] MEDS: ONDANSETRON 4MG/2ML VIAL (J2405) IV (18:16)
[2018-03-01] MEDS ORDERED: KETOROLAC 30 MG/ML VIAL (J1885) IV (19:00)
== END 2018-03-01 19:45 | disposition home or self-care (01) ==
LOC: M SDC 12:38
DX: N81.10 Cystocele, unspecified (principal); N81.6 Rectocele; E78.00 Pure hypercholesterolemia, unspecified; K59.00 Constipation, unspecified; K21.9 Gastro-esophageal reflux disease without esophagitis; B18.2 Chronic viral hepatitis C; F41.9 Anxiety disorder, unspecified; F32.9 Major depressive disorder, single episode, unspecified; R51 Headache; F43.10 Post-traumatic stress disorder, unspecified; R06.83 Snoring; Z79.899 Other long term (current) drug therapy; Z72.0 Tobacco use; Z98.51 Tubal ligation status; Z87.442 Personal history of urinary calculi; Z87.820 Personal history of traumatic brain injury; Z90.710 Acquired absence of both cervix and uterus; Z86.59 Personal history of other mental and behavioral disorders
CPT/HCPCS: 57260

== ENCOUNTER 2018-04-23 20:53 | Emergency (ER) | payer OTHER, MEDICAID ==
[~2018-04-23] VITALS: Ht 170.2 cm; Wt 81.8 kg
[~2018-04-23 20:53] MED LIST changes: +ASPI1TAB PO; +AUGM875T28 PO; +BACT800T5 PO; +BUSP10TA PO; +CLON-412 PO; +CLON0.2T PO; +COLA100C5 PO; +DOCU8.6T PO; +FLUO10CA9 PO; +GABA-843 PO; +GABA800T4 PO; +IBUP-1022 PO; +IBUP1TAB7 PO; +IBUPOTC PO; -KETOROLAC 60 MG/2 ML VIAL (J1885) As Ordered; +LAMI1TAB7 PO; +LAMO200T2 PO; +LASI40TA9 PO; -LIDOCAINE 2% INJ 100 MG/5 ML SDV (FOR ANES.) As Ordered; +LOVA20TA2 PO; -MIDAZOLAM INJ 2 MG/2 ML VIAL (J2250) As Ordered; +MUCI600T37 PO; +MULTCAP PO; +NORCOTAB PO; +OMEP40CA2 PO; -ONDANSETRON 4MG/2ML VIAL (J2405) As Ordered; +OXYC1TAB23 PO; +PERC5TAB12 PO; +PERCOCET PO; +POTA1TAB14 PO; +PRED20TA PO; -PROPOFOL 200 MG/20 ML VIAL As Ordered; +PROZ20CA11 PO; +SUBO12MI SL; +TRAZ1TAB14 PO; +VENL37.52 PO; +VITMTA PO; -dexameTHASONE 4 MG/ML 1ML VIAL (J1100) As Ordered; -fentaNYL 100 MCG/2 ML INJECTION (J3010) As Ordered
--- NOTE | 2018-04-24 00:17 | REP ---
Clinical: Trauma. Technique: AP, lateral, bilateral oblique and scaphoid views right wrist. Findings: The carpal bones, surrounding osseous structures, soft tissues, and joint spaces are normal. There is no evidence for acute fracture or dislocation. No subcutaneous emphysema or radiodense foreign body. Impression: Normal wrist series. No acute fracture or dislocation Electronically Signed by Artur Moore MD 04/24/2018 12:08 A
[2018-04-24] MEDS ORDERED: IBUPROFEN 600 MG TAB PO ONE (01:00)
[2018-04-24] MEDS ORDERED: PERCOCET 5MG/325MG TAB PO ONE (01:00)
[2018-04-24 01:48] VITALS: BP 113/83
--- NOTE | 2018-04-24 10:42 | REP ---
Clinical: Pain. Technique: AP and lateral views of the right forearm. Findings: No acute fracture or dislocation. Osseous structures, joint spaces, and surrounding soft tissues are normal. No subcutaneous emphysema or radiodense foreign body. Impression: Normal right forearm radiographs. Electronically Signed by Artur Moore MD 04/24/2018 02:48 A
== END 2018-04-24 01:56 | disposition home or self-care (01) ==
LOC: M ED 20:53
DX: S63.501A Unspecified sprain of right wrist, initial encounter (principal); X58.XXXA Exposure to other specified factors, initial encounter; Y92.89 Other specified places as the place of occurrence of the external cause; I50.9 Heart failure, unspecified; E78.5 Hyperlipidemia, unspecified; Z79.899 Other long term (current) drug therapy; F17.210 Nicotine dependence, cigarettes, uncomplicated

== ENCOUNTER 2018-05-02 19:46 | Emergency (ER) | payer OTHER, MEDICAID ==
[~2018-05-02] VITALS: Ht 170.2 cm; Wt 90.0 kg
[2018-05-02] MEDS ORDERED: MAGIC MOUTHWASH SUSPENSION BTL SS ONE (21:30)
[2018-05-02] MEDS ORDERED: GENTAMICIN 0.3% OPHTH SOL 5 ML BTL OU ONE (21:30)
[2018-05-02 22:04] VITALS: BP 133/74
[2018-05-02] MEDS ORDERED: GENT3OPD OP (22:04)
[2018-05-02] MEDS ORDERED: MAGICMW SSP (22:04)
== END 2018-05-02 22:23 | disposition home or self-care (01) ==
LOC: M ED 19:46
DX: H10.33 Unspecified acute conjunctivitis, bilateral (principal); J02.8 Acute pharyngitis due to other specified organisms; I50.9 Heart failure, unspecified; F32.9 Major depressive disorder, single episode, unspecified; F43.10 Post-traumatic stress disorder, unspecified; Z87.442 Personal history of urinary calculi; Z79.899 Other long term (current) drug therapy

== ENCOUNTER → 2018-05-09 | Outpatient (CLI) | payer OTHER, MEDICAID ==
[~2018-05-09] MED LIST changes: +GENT3OPD OP; +MAGICMW SSP
[2018-05-09 12:27] LABS: HEMATOCRIT 40.7 % (36.0-47.0); HEMOGLOBIN 13.4 g/dl (12.0-15.5); MEAN CORPUSCULAR HEMOGLOBIN 29.9 pg (27.0-33.0); MEAN CORPUSCULAR HGB CONC 32.9 g/dl (32.0-36.5); MEAN CORPUSCULAR VOLUME 90.8 fl (80.0-96.0); PLATELET COUNT, AUTOMATED 187 10^3/uL (150-450); RED BLOOD COUNT 4.48 10^6/uL (4.00-5.40); WHITE BLOOD COUNT 8.6 10^3/uL (4.0-10.0)
[2018-05-09 13:00] LABS: ALBUMIN 3.7 GM/DL (3.2-5.2); ALT/SGPT 72 U/L (12-78); BILIRUBIN,TOTAL 0.9 MG/DL (0.2-1.0); BLOOD UREA NITROGEN 12 MG/DL (7-18); CALCIUM LEVEL 9.1 MG/DL (8.5-10.1); CARBON DIOXIDE LEVEL 24 MEQ/L (21-32); CHLORIDE LEVEL 105 MEQ/L (98-107); CREATININE FOR GFR 0.71 MG/DL (0.55-1.30); GLOMERULAR FILTRATION RATE > 60.0 (>60); GLUCOSE, FASTING 170 MG/DL (70-100); SODIUM LEVEL 138 MEQ/L (136-145); TOTAL PROTEIN 7.3 GM/DL (6.4-8.2)
[2018-05-09 13:05] LABS: FOLATE 23.9 NG/ML (>5.4); VITAMIN B12 LEVEL 734 PG/ML (247-911)
== END ==
LOC: M LAB 11:45
PROVIDERS: ATTEND Hospitalist
DX: G62.9 Polyneuropathy, unspecified (principal); R60.0 Localized edema

== ENCOUNTER 2018-06-11 21:54 | Emergency (ER) | payer MEDICAID, OTHER ==
[~2018-06-11] VITALS: Ht 167.6 cm; Wt 81.8 kg
[~2018-06-11 21:54] MED LIST changes: -ASPI1TAB PO; +ASPI81TA26 PO; +GENT0.3S36 OP; -GENT3OPD OP; +HYDR-3715 PO; -NORCOTAB PO
[2018-06-11 23:11] LABS: BASO # 0.1 10^3/uL (0.0-0.2); BASO % 0.7 % (0.0-1.0); EOS % 0.5 % (0.0-3.0); HEMATOCRIT 40.4 % (36.0-47.0); HEMOGLOBIN 13.2 g/dl (12.0-15.5); LYMPH # 2.4 10^3/uL (1.5-4.5); LYMPH % 31.8 % (24.0-44.0); MEAN CORPUSCULAR HEMOGLOBIN 29.6 pg (27.0-33.0); MEAN CORPUSCULAR HGB CONC 32.7 g/dl (32.0-36.5); MEAN CORPUSCULAR VOLUME 90.6 fl (80.0-96.0); MONO # 0.4 10^3/uL (0.0-0.8); MONO % 5.5 % (0.0-5.0); NEUTROPHILS # 4.7 10^3/uL (1.8-7.7); NEUTROPHILS % 61.2 % (36.0-66.0); PLATELET COUNT, AUTOMATED 204 10^3/uL (150-450); RED BLOOD COUNT 4.46 10^6/uL (4.00-5.40); WHITE BLOOD COUNT 7.6 10^3/uL (4.0-10.0)
[2018-06-11 23:43] LABS: ALBUMIN 3.5 GM/DL (3.2-5.2); ALT/SGPT 46 U/L (12-78); BILIRUBIN,TOTAL 0.7 MG/DL (0.2-1.0); BLOOD UREA NITROGEN 14 MG/DL (7-18); CALCIUM LEVEL 8.8 MG/DL (8.5-10.1); CARBON DIOXIDE LEVEL 27 MEQ/L (21-32); CHLORIDE LEVEL 108 MEQ/L (98-107); CK-MB VALUE MASS < 1.0 NG/ML (<3.6); CPK CREATINE PHOSPHOKINASE 41 U/L (26-192); CREATININE FOR GFR 0.64 MG/DL (0.55-1.30); GLOMERULAR FILTRATION RATE > 60.0 (>60); GLUCOSE, FASTING 98 MG/DL (70-100); MB/CK RELATIVE INDEX 2.44 (< OR =4); SODIUM LEVEL 141 MEQ/L (136-145); TOTAL PROTEIN 6.9 GM/DL (6.4-8.2); TROPONIN I < 0.02 NG/ML (< 0.10)
[2018-06-12 01:02] VITALS: BP 114/73
--- NOTE | 2018-06-12 08:12 | ECGEPIP ---
Stationary ECG Study [facility] - ED Test Date: 2018-06-11 Pat Name: DELMAR HOROWITZ Department: Room: - Gender: F Medical Office Assistant Instructor: MARTINEZ : 1980 Requested By: MAYELIN Chacon Order Number: [id number] Reading MD: Eren Larsen Measurements Intervals [place] Rate: 67 P: 22 TN: 148 QRS: 65 QRSD: 90 T: 59 QT: 382 QTc: 404 Interpretive Statements SINUS RHYTHM WITH SINUS ARRHYTHMIA SIMILAR TO 09/10/17 Electronically Signed On 06-12-2018 8:12:07 EDT by Eren Larsen
== END 2018-06-12 01:09 | disposition home or self-care (01) ==
LOC: M ED 21:54
DX: R07.9 Chest pain, unspecified (principal); I50.9 Heart failure, unspecified; Z72.0 Tobacco use; Z79.899 Other long term (current) drug therapy

== ENCOUNTER 2018-10-26 16:52 | Emergency (ER) | payer MEDICAID, OTHER ==
[~2018-10-26] VITALS: Ht 167.6 cm; Wt 81.8 kg
[2018-10-26 17:57] LABS: HEMATOCRIT 41.6 % (36.0-47.0); HEMOGLOBIN 13.5 g/dl (12.0-15.5); MEAN CORPUSCULAR HEMOGLOBIN 30.3 pg (27.0-33.0); MEAN CORPUSCULAR HGB CONC 32.5 g/dl (32.0-36.5); MEAN CORPUSCULAR VOLUME 93.3 fl (80.0-96.0); PLATELET COUNT, AUTOMATED 109 10^3/uL (150-450); RED BLOOD COUNT 4.46 10^6/uL (4.00-5.40); WHITE BLOOD COUNT 5.1 10^3/uL (4.0-10.0)
[2018-10-26] MEDS ORDERED: NS 1,000 ML IV ONE (18:00)
[2018-10-26] MEDS ORDERED: KETOROLAC 30 MG/ML VIAL (J1885) IV ONE (18:00)
[2018-10-26] MEDS ORDERED: DICYCLOMINE 10 MG CAP PO ONE (18:00)
[2018-10-26] MEDS ORDERED: METOCLOPRAMIDE INJ 10MG/2ML VIAL (J2765) IV ONE (18:00)
[2018-10-26 18:31] LABS: ALBUMIN 2.6 GM/DL (3.2-5.2); ALT/SGPT 1553 U/L (12-78); BILIRUBIN,DIRECT 8.8 MG/DL (0.0-0.2); BILIRUBIN,TOTAL 10.6 MG/DL (0.2-1.0); BLOOD UREA NITROGEN 6 MG/DL (7-18); CALCIUM LEVEL 7.6 MG/DL (8.5-10.1); CARBON DIOXIDE LEVEL 28 MEQ/L (21-32); CHLORIDE LEVEL 105 MEQ/L (98-107); CPK CREATINE PHOSPHOKINASE 19 U/L (26-192); CREATININE FOR GFR 0.62 MG/DL (0.55-1.30); GLOMERULAR FILTRATION RATE > 60.0 (>60); GLUCOSE, FASTING 125 MG/DL (70-100); LIPASE 225 U/L (73-393); SODIUM LEVEL 138 MEQ/L (136-145); TOTAL PROTEIN 5.6 GM/DL (6.4-8.2)
[2018-10-26 18:44] LABS: BILIRUBIN, URINE MANUAL OBSCURED (NEGATIVE); GLUCOSE, URINE (UA) MANUAL OBSCURED mg/dL (NEGATIVE); KETONE, URINE MANUAL OBSCURED mg/dL (NEGATIVE); UROBILINOGEN, URINE MANUAL OBSCURED mg/dl (NORMAL)
[2018-10-26 18:54] LABS: ATYPICAL LYMPH 13 % (0-5); EOSINOPHILS 2 % (0-5); LYMPHOCYTES 19 % (16-52); MONOCYTES 6 % (0-8); NEUTROPHILS 59 % (35-75)
[2018-10-26 18:55] LABS: ANISOCYTOSIS 1+; PLATELET ESTIMATE DECREASED (NORMAL)
[2018-10-26 19:01] LABS: BACTERIA, URINE LARGE AMOUNT; MUCUS, URINE LARGE AMOUNT (NEGATIVE); SQUAMOUS EPITHELIAL CELL URINE LARGE AMOUNT /hpf (SMALL AMT); TRANSITIONAL EPI CELLS, URINE SMALL AMOUNT /hpf
[2018-10-26 19:02] LABS: HYALINE CAST, URINE NONE SEEN /lpf (0-1)
[2018-10-26] MEDS ORDERED: ISOVUE-370 76% 100ML VIAL (Q9967) As Ordered ONE (20:54)
[2018-10-27] MEDS ORDERED: EFFE75CA2 PO (00:32)
[2018-10-27] MEDS ORDERED: EFFE150C2 PO (00:32)
[2018-10-27] MEDS ORDERED: REME30TA PO (00:32)
[2018-10-27] MEDS ORDERED: VENL150C43 PO (00:32)
[2018-10-27] MEDS ORDERED: PATIENT COMMENTS (00:44)
[2018-10-27 01:20] LABS: INR 1.15; PROTHROMBIN TIME 14.4 SECONDS (11.8-14.0)
[2018-10-27 01:21] LABS: PARTIAL THROMBOPLASTIN TIME 33.2 SECONDS (25.0-38.4)
[2018-10-27 02:40] LABS: ACETAMINOPHEN LEVEL < 2.0 UG/ML (10.0-30.0)
[2018-10-27 03:58] VITALS: BP 128/69
--- NOTE | 2018-10-27 09:42 | REP ---
HISTORY: Assess central line placement. COMPARISON: 09/16/2017. A right-sided internal jugular central venous catheter has been placed, the tip of which is in the superior vena cava. The lungs are clear and the heart is not enlarged. The technique utilized in obtaining the radiograph has magnified the cardiac silhouette and accentuated the interstitial markings. The osseous structures are normal. IMPRESSION: Central line placement as described above. Electronically Signed by Zach Salmeron DO 10/27/2018 10:05 A
[2018-10-28 10:49] LABS: HEPATITIS B SURFACE ANTIGEN NEGATIVE (NEGATIVE)
[2018-10-28 11:17] LABS: HEPATITIS B CORE ANTIBODY IGM NEGATIVE (NEGATIVE)
[2018-10-28 11:28] LABS: HEPATITIS A ANTIBODY IGM POSITIVE (NEGATIVE)
[2018-10-28 11:31] LABS: HEPATITIS C VIRUS ABY INDEX > 11.0 INDEX (<0.8)
== END 2018-10-27 03:15 | disposition short-term general hospital (02) ==
LOC: M ED 16:52
DX: B17.9 Acute viral hepatitis, unspecified (principal); I11.0 Hypertensive heart disease with heart failure; I50.9 Heart failure, unspecified; E78.5 Hyperlipidemia, unspecified; Z87.442 Personal history of urinary calculi; Z79.899 Other long term (current) drug therapy; F17.210 Nicotine dependence, cigarettes, uncomplicated
CPT/HCPCS: 36415; 36556; 71045; 74177; 80048; 80076; 81000; 82140; 82550; 83690; 85025; 85610; 85730; 86705; 86709; 86803; 87086; 87340; 87521; 99285; G0480; J2765; Q9967

== ENCOUNTER → 2019-01-16 | Outpatient (CLI) | payer OTHER ==
[~2019-01-16] MED LIST changes: +EFFE150C2 PO; +EFFE75CA2 PO; -OMEP40CA2 PO; +OMEP40CA97 PO; +PATIENT COMMENTS; +REME30TA PO; +VENL150C43 PO
[2019-01-16 15:44] LABS: ALBUMIN 3.7 GM/DL (3.2-5.2); ALT/SGPT 41 U/L (12-78); BILIRUBIN,DIRECT 0.2 MG/DL (0.0-0.2); BILIRUBIN,TOTAL 0.9 MG/DL (0.2-1.0); BLOOD UREA NITROGEN 9 MG/DL (7-18); CALCIUM LEVEL 8.6 MG/DL (8.5-10.1); CARBON DIOXIDE LEVEL 26 MEQ/L (21-32); CHLORIDE LEVEL 106 MEQ/L (98-107); CHOLESTEROL LEVEL 153 MG/DL (<200); CHOLESTEROL RISK RATIO 5.666 (<5); CREATININE FOR GFR 0.58 MG/DL (0.55-1.30); GLOMERULAR FILTRATION RATE > 60.0 (>60); GLUCOSE, FASTING 114 MG/DL (70-100); HDL CHOLESTEROL 27 MG/DL (>40); LDL CHOLESTEROL 56 MG/DL (<100); NON-HDL-C 126 MG/DL; POTASSIUM SERUM 4.2 MEQ/L (3.5-5.1); SODIUM LEVEL 138 MEQ/L (136-145); TRIGLYCERIDES LEVEL 348 MG/DL (<150)
[2019-01-18 15:06] LABS: ANTI DOUBLE STRAND-DNA AB <1 IU/mL (0-9); ANTI-MITOCHONDRIAL ANTIBODY <20.0 Units (0.0-20.0); ANTINUCLEAR ANTIBODIES DIRECT Positive (Negative); RNP ANTIBODIES 0.2 AI (0.0-0.9); SJOGREN'S ANTI SS-A <0.2 AI (0.0-0.9); SJOGREN'S ANTI SS-B <0.2 AI (0.0-0.9); SMITH ANTIBODIES <0.2 AI (0.0-0.9)
== END ==
LOC: M LAB 13:19
PROVIDERS: ATTEND Hospitalist
DX: B15.9 Hepatitis A without hepatic coma (principal); R74.0 Nonspecific elevation of levels of transaminase and lactic acid dehydrogenase [LDH]

== ENCOUNTER → 2019-01-16 | Outpatient (CLI) | payer OTHER ==
[2019-01-16 15:28] LABS: HEMOGLOBIN 13.8 g/dl (12.0-15.5); MEAN CORPUSCULAR HEMOGLOBIN 30.4 pg (27.0-33.0); MEAN CORPUSCULAR HGB CONC 31.4 g/dl (32.0-36.5); MEAN CORPUSCULAR VOLUME 96.9 fl (80.0-96.0); PLATELET COUNT, AUTOMATED 136 10^3/uL (150-450); RED BLOOD COUNT 4.54 10^6/uL (4.00-5.40); WHITE BLOOD COUNT 6.4 10^3/uL (4.0-10.0)
[2019-01-16 15:43] LABS: ALBUMIN 3.7 GM/DL (3.2-5.2); ALT/SGPT 42 U/L (12-78); BLOOD UREA NITROGEN 9 MG/DL (7-18); CALCIUM LEVEL 8.6 MG/DL (8.5-10.1); CARBON DIOXIDE LEVEL 26 MEQ/L (21-32); CHLORIDE LEVEL 107 MEQ/L (98-107); CREATININE FOR GFR 0.59 MG/DL (0.55-1.30); GLOMERULAR FILTRATION RATE > 60.0 (>60); GLUCOSE, FASTING 118 MG/DL (70-100); POTASSIUM SERUM 4.3 MEQ/L (3.5-5.1); SODIUM LEVEL 139 MEQ/L (136-145)
[2019-01-16 16:13] LABS: HCG, SERUM QUALITATIVE NEGATIVE (NEGATIVE)
[2019-01-16 16:58] LABS: CHLAMYDIA DNA AMPLIFICATION NEGATIVE (NEGATIVE); GC DNA AMPLIFICATION NEGATIVE (NEGATIVE)
--- NOTE | 2019-01-16 17:00 | ECGEPIP ---
[facility] Test Date: 2019-01-16 Pat Name: DELMAR HOROWITZ Department: Room: - Gender: Female Field Applications Specialist: MARILU : 1980 Requested By: Anil Dewitt Order Number: [id number] Reading MD: Darryl Ball Measurements Intervals [place] Rate: 63 P: 75 NH: 149 QRS: 74 QRSD: 96 T: 72 QT: 412 QTc: 422 Interpretive Statements SINUS RHYTHM WITH SINUS ARRHYTHMIA LOW QRS VOLTAGE IN PRECORDIAL LEADS WARNING: DATA QUALITY MAY AFFECT INTERPRETATION No V6 data. No significant change compared with 06/11/2018 Electronically Signed on 01-16-2019 17:00:21 EDT by Darryl Ball
[2019-01-17 09:38] LABS: HEPATITIS B SURFACE ANTIGEN NEGATIVE (NEGATIVE)
[2019-01-17 10:03] LABS: HIV 1&2 SCREEN CENTAUR NEGATIVE (NEGATIVE)
[2019-01-17 10:06] LABS: HEPATITIS C VIRUS ABY INDEX > 11.0 INDEX (<0.8)
== END ==
LOC: M LAB 13:15
PROVIDERS: ATTEND Family Medicine
DX: F11.20 Opioid dependence, uncomplicated (principal)

== ENCOUNTER → 2019-02-06 | Outpatient (REF) | payer OTHER | LOC: M SFHCPLAZ 15:56 | PROVIDERS: ATTEND Hospitalist | DX: R30.0 Dysuria (principal) ==

== ENCOUNTER → 2019-02-19 | Outpatient (CLI) | payer OTHER ==
[~2019-02-19] MED LIST changes: -LAMO200T2 PO; +LAMO200T3 PO
--- NOTE | 2019-02-19 09:19 | REP ---
Clinical: Hepatomegaly. Correlation: CT dated 10/26/2018. Findings: The liver is mildly prominent in size with a rounded inferior border measuring 18.8 cm in craniocaudal length. No focal hepatic lesion identified. Hepatic echotexture is normal. Visualized pancreas is unremarkable. A 2.3 x 1.4 x 1.6 cm hypoechoic ovoid lesion adjacent to the pancreatic head at the camilo hepatis likely represents a nonspecific lymph node. Cholelithiasis noted without gallbladder wall thickening or pericholecystic fluid. No biliary ductal dilatation is appreciated and the common bile duct measures 6.5 mm diameter. Right kidney is normal in reniform shape and echogenicity without hydronephrosis and measures 11.7 x 6.6 x 4.3 cm. No ascites. Impression: 1. Liver is upper limits of normal in size without further abnormality. 2. Cholelithiasis. 3. Single lymph node at the camilo hepatis is nonspecific and likely incidental. Electronically Signed by Artur Moore MD 02/19/2019 09:11 A
== END ==
LOC: M RAD 07:59
PROVIDERS: ATTEND Hospitalist
DX: R16.0 Hepatomegaly, not elsewhere classified (principal); K80.20 Calculus of gallbladder without cholecystitis without obstruction

== ENCOUNTER → 2019-03-21 | Outpatient (REF) | payer OTHER ==
[~2019-03-21] MED LIST changes: +ALL10TAB29 PO; +AZIT-12 PO; +FURO20TA2 PO; +METH10TA2 PO; +MUCI1TAB18 PO; +PROAAER10 INH
[2019-03-21 18:48] LABS: APPEARANCE, URINE CLOUDY (CLEAR); BACTERIA, URINE AUTO NEGATIVE (NEGATIVE); BILIRUBIN, URINE AUTO 1+ (NEGATIVE); BLOOD, URINE BLOOD NEGATIVE (NEGATIVE); CALCIUM OXALATE CRYSTALS SMALL; COLOR, URINE AMBER (YELLOW); GLUCOSE, URINE (UA) AUTO NEGATIVE (NEGATIVE); KETONE, URINE AUTO TRACE mg/dL (NEGATIVE); LEUKOCYTE ESTERASE, URINE AUTO NEGATIVE (NEGATIVE); MUCUS, URINE SMALL (NEGATIVE); NITRITE, URINE AUTO NEGATIVE (NEGATIVE); PROTEIN, URINE AUTO 1+ mg/dL (NEGATIVE); RBC, URINE AUTO 1 /HPF (0-3); SPECIFIC GRAVITY URINE AUTO 1.026 (1.002-1.035); SQUAMOUS EPITHELIAL CELL UR AU 31 /HPF (0-6); WBC, URINE AUTO 2 /HPF (0-3)
== END ==
LOC: M SFHCPLAZ 16:47
PROVIDERS: ATTEND Hospitalist
DX: R31.29 Other microscopic hematuria (principal)

== ENCOUNTER 2019-03-24 23:28 | Emergency (ER) | payer OTHER ==
[~2019-03-24] VITALS: Ht 170.2 cm; Wt 101.4 kg
[~2019-03-24 23:28] MED LIST changes: -ALL10TAB29 PO; -AZIT-12 PO; -FURO20TA2 PO; -METH10TA2 PO; -MUCI1TAB18 PO; -PROAAER10 INH
[2019-03-24] MEDS ORDERED: ALL10TAB29 PO (23:45)
[2019-03-24] MEDS ORDERED: METH10TA2 PO (23:48)
[2019-03-25] MEDS ORDERED: IPRATROPIUM 0.5MG/ALBUTEROL 2.5MG INH SOL UD 3ML (DUONEB)(J7620) NEB ONE (00:45)
[2019-03-25] MEDS ORDERED: methylPREDNISolone INJ 125 MG/2 ML VIAL (J2930) IV ONE (00:45)
[2019-03-25] MEDS ORDERED: methylPREDNISolone INJ 125 MG/2 ML VIAL (J2930) IM ONE (01:45)
[2019-03-25 02:22] LABS: INFLUENZA A AMPLIFICATION NEGATIVE (NEGATIVE); INFLUENZA B AMPLIFICATION NEGATIVE (NEGATIVE)
[2019-03-25] MEDS ORDERED: AZITHROMYCIN 250 MG TAB PO ONE (02:30)
[2019-03-25] MEDS ORDERED: AZIT-12 PO (02:33)
[2019-03-25] MEDS ORDERED: FURO20TA2 PO (02:33)
[2019-03-25] MEDS ORDERED: PROAAER10 INH (02:33)
[2019-03-25] MEDS ORDERED: PRED20TA PO (02:33)
[2019-03-25] MEDS ORDERED: MUCI1TAB18 PO (02:45)
[2019-03-25 02:57] VITALS: BP 133/72
--- NOTE | 2019-03-25 07:03 | REP ---
Clinical: Cough . Comparison: 10/26/2018 . Technique: PA and lateral. Findings: The mediastinum and cardiac silhouette are normal. The lung garcia are clear and without acute consolidation, effusion, or pneumothorax. The skeletal structures are intact and normal. Impression: 1. No acute cardiopulmonary process. Electronically Signed by Artur Moore MD 03/25/2019 06:54 A
== END 2019-03-25 02:58 | disposition home or self-care (01) ==
LOC: M ED 23:28
DX: R05 Cough (principal); R06.2 Wheezing; R50.9 Fever, unspecified; I10 Essential (primary) hypertension; E78.49 Other hyperlipidemia; F17.218 Nicotine dependence, cigarettes, with other nicotine-induced disorders
CPT/HCPCS: 71046; 87502; 94640; 96372; 99283; J2930

== ENCOUNTER → 2019-09-09 | Outpatient (CLI) | payer OTHER ==
[~2019-09-09] MED LIST changes: +ALL10TAB29 PO; +AZIT-12 PO; +FURO20TA2 PO; +IBUP80TA PO; +METH10TA2 PO; +MUCI1TAB18 PO; +PROAAER10 INH
== END ==
LOC: M LABSMTC 11:41
PROVIDERS: ATTEND Anesthesiology
DX: Z03.818 Encounter for observation for suspected exposure to other biological agents ruled out (principal); Z11.59 Encounter for screening for other viral diseases
CPT/HCPCS: C9803; U0003

== ENCOUNTER 2019-09-12 06:19 | Day surgery (SDC) | payer OTHER ==
[~2019-09-12] VITALS: Ht 167.6 cm; Wt 99.8 kg
[~2019-09-12 06:19] MED LIST changes: -IBUP80TA PO; +LR 1,000 ML IV ONE
[2019-09-12 06:49] LABS: HEMATOCRIT 43.6 % (36.0-47.0); HEMOGLOBIN 13.9 g/dl (12.0-15.5); MEAN CORPUSCULAR HEMOGLOBIN 29.8 pg (27.0-33.0); MEAN CORPUSCULAR HGB CONC 31.9 g/dl (32.0-36.5); MEAN CORPUSCULAR VOLUME 93.4 fl (80.0-96.0); PLATELET COUNT, AUTOMATED 109 10^3/uL (150-450); RED BLOOD COUNT 4.67 10^6/uL (4.00-5.40); WHITE BLOOD COUNT 6.1 10^3/uL (4.0-10.0)
[2019-09-12] MEDS ORDERED: BUPIVACAINE/EPIN 0.25% 30 ML VIAL As Ordered ONE (07:06)
[2019-09-12] MEDS ORDERED: LIDOCAINE 2% 100MG/5ML SDV (FOR ANES.) As Ordered ONE (07:13)
[2019-09-12] MEDS ORDERED: propofoL 200 MG/20 ML VIAL As Ordered ONE (07:13)
[2019-09-12] MEDS ORDERED: MIDAZOLAM INJ 2MG/2ML VIAL (J2250 PER 1MG) As Ordered ONE (07:13)
[2019-09-12] MEDS ORDERED: fentaNYL 100 MCG/2 ML INJECTION (J3010) As Ordered ONE ×2 (07:13→07:47)
[2019-09-12] MEDS ORDERED: ONDANSETRON 4MG/2ML VIAL As Ordered ONE (07:13)
[2019-09-12] MEDS ORDERED: dexameTHASONE 4 MG/ML 1ML VIAL (J1100 PER 1MG) As Ordered ONE (07:14)
[2019-09-12] MEDS ORDERED: ROCURONIUM BROMIDE 50 MG/5 ML VIAL As Ordered ONE (07:31)
[2019-09-12] MEDS ORDERED: ACETAMINOPHEN 1000MG 100ML IV BTL (OFIRMEV) (J0131 PER 10MG) As Ordered ONE (07:49)
[2019-09-12] MEDS ORDERED: SUGAMMADEX SODIUM 500 MG/5 ML VIAL (BRIDION) As Ordered ONE (08:06)
[2019-09-12] MEDS ORDERED: ePHEDrine SULFATE 25 MG/5 ML(5MG/ML) SYRINGE As Ordered ONE (08:06)
[2019-09-12] MEDS ORDERED: KETOROLAC 60MG 2ML VIAL As Ordered ONE (08:06)
[2019-09-12] MEDS ORDERED: ceFAZolin 2 GM/D5W 50 ML IV BAG (J0690 PER 500MG) As Ordered ONE (08:12)
[2019-09-12] MEDS ORDERED: PHENYLephrine HCL 500 MCG/5 ML (100MCG/ML) SYRINGE (J2370) As Ordered ONE (08:22)
[2019-09-12] MEDS ORDERED: GLYCOPYRROLATE INJ 0.2 MG/ML 2 ML VIAL As Ordered ONE (08:48)
[2019-09-12] MEDS ORDERED: KETOROLAC 30 MG/ML 1ML VIAL IV PRN (09:30)
[2019-09-12] MEDS ORDERED: ONDANSETRON 4MG/2ML VIAL IV PRN (09:30)
[2019-09-12] MEDS ORDERED: PERCOCET 5MG/325MG TAB PO PRN (09:30)
[2019-09-12] MEDS ORDERED: fentaNYL 100 MCG/2 ML INJECTION (J3010) IV PRN (09:30)
[2019-09-12] MEDS ORDERED: LR 1,000 ML IV SCH (09:30)
[2019-09-12] MEDS ORDERED: oxyCODONE 5MG TAB PO PRN (09:30)
--- NOTE | 2019-09-12 10:21 | ROOPDOC ---
[facility] Report Of Operation Report of Operation DATE OF PROCEDURE: 09/12/2019 PREOPERATIVE DIAGNOSIS: 1. Cystocele . POSTOPERATIVE DIAGNOSIS: 1. Cystocele. PROCEDURES PERFORMED: 1. Anterior colporrhaphy. 2. Cystoscopy. SURGEON: Samara Hernandez MD SPORTS THERAPIST: Augustine Beard MD ANESTHESIA: General. ESTIMATED BLOOD LOSS: 100 mL. INTRAVENOUS FLUIDS: 800 mL lactated Ringer's solution URINE OUTPUT: 50 mL. PREOPERATIVE ANTIBIOTICS: 2 grams Ancef. SPECIMENS: Vaginal mucosa. OPERATIVE FINDINGS: Patient with a midline anterior wall defect. DESCRIPTION OF OPERATION: After informed consent was obtained and written consent was reviewed, the patient was brought to the operating room where general endotracheal anesthesia was obtained. She was placed in a lithotomy position. The area was prepped and draped in a normal sterile fashion. A time out in the operating room was then performed identifying the patient procedure to be performed as well as drug allergies. A midline anterior defect was appreciated. Allis clamps were placed at the midline up to the level of the bladder neck. The vaginal mucosa was injected with 0.25% Marcaine with epinephrine for hydrodissection. The midline incision was made and the mucosa was dissected away from the submucosa. Next, the pelvic fascia was then plicated using 2-0 Vicryl in the midline . Vaginal tissue was then trimmed and the vaginal mucosa was then closed using 2-0 Vicryl. Next, a cystoscopy was performed. The Vega catheter was removed. The cystoscope was advanced through the urethra. The cystoscopy was performed revealing normal bladder mucosa with bilateral jets. The bladder was then drained. The patient was then taken out of lithotomy position and was awakened from general anesthesia and was taken to recovery in stable condition. Counts were correct. Dr. Beard my surgical forceps fabricator played an essential role in the operation of tissue retraction and identification of structures as well as wound closure. SAMARA HERNANDEZ MD. Sep 12, 2019 10:21
[2019-09-12] MEDS ORDERED: IBUP80TA PO (10:22)
[2019-09-12 12:40] VITALS: BP 127/65
== END 2019-09-12 12:51 | disposition home or self-care (01) ==
LOC: M SDC 06:19
PROVIDERS: ATTEND Obstetrics & Gynecology
DX: N81.10 Cystocele, unspecified (principal); E78.5 Hyperlipidemia, unspecified; G47.33 Obstructive sleep apnea (adult) (pediatric); E66.01 Morbid (severe) obesity due to excess calories; Z79.899 Other long term (current) drug therapy; B18.2 Chronic viral hepatitis C; F11.11 Opioid abuse, in remission; F41.9 Anxiety disorder, unspecified; F32.9 Major depressive disorder, single episode, unspecified; F17.218 Nicotine dependence, cigarettes, with other nicotine-induced disorders; K21.9 Gastro-esophageal reflux disease without esophagitis; F43.10 Post-traumatic stress disorder, unspecified
CPT/HCPCS: 36415; 57240; 85027; 86850; 86900; 86901; 88302; J0131; J0690; J1100; J1885; J2250; J2370; J2405; J3010

== ENCOUNTER → 2020-01-22 | Outpatient (REF) | payer OTHER ==
[~2020-01-22] MED LIST changes: -ALL10TAB29 PO; +CETI-24 PO; +IBUP80TA PO; -LR 1,000 ML IV ONE
== END ==
LOC: M SFHCPLAZ 14:05
DX: Z13.1 Encounter for screening for diabetes mellitus (principal); Z86.19 Personal history of other infectious and parasitic diseases

== ENCOUNTER → 2020-02-06 | Outpatient (CLI) | payer OTHER ==
[2020-02-06 14:05] LABS: ALBUMIN 3.6 GM/DL (3.2-5.2); ALT/SGPT 36 U/L (12-78); BILIRUBIN,TOTAL 0.8 MG/DL (0.2-1.0); BLOOD UREA NITROGEN 7 MG/DL (7-18); CALCIUM LEVEL 8.9 MG/DL (8.5-10.1); CARBON DIOXIDE LEVEL 27 MEQ/L (21-32); CHLORIDE LEVEL 102 MEQ/L (98-107); GLOMERULAR FILTRATION RATE > 60.0 (>58); GLUCOSE, FASTING 292 MG/DL (70-100); SODIUM LEVEL 138 MEQ/L (136-145); TOTAL PROTEIN 7.4 GM/DL (6.4-8.2)
[2020-02-06 17:45] LABS: HEMOGLOBIN A1c 8.4 %
--- NOTE | 2020-02-10 11:12 | ECHO ---
DATE OF PROCEDURE: 02/06/2020 Age: 40 Gender: Female Height: 67 inches Weight: 221 pounds Body surface area: 2.11 m2 PATIENT LOCATION: Outpatient. REFERRING PHYSICIAN: Tylor Ulloa DO. INDICATION: Congestive heart failure (CHF). MEASUREMENTS: 2D Measurements: RV 3.7 cm LV 5.1 cm Septum 1.0 cm Posterior wall 1.0 cm Aortic Root 3.3 cm LA 4.0 cm LVEF 75% Doppler Measurements: AV 1.43 m/s LVOT 1.18 m/s LVOT diameter 1.8 cm MV-E 86, A 111, E/A ratio 0.8 Early mitral deceleration time 190 msec E prime medial 7.6, A prime medial 10, E prime lateral 9.1 Average E/E prime ratio 10.3/PCWP 14.7 mmHg PV 0.85 m/s Pulmonary artery acceleration time 114 msec PASP 30 mmHg IVC 1.6 cm COMMENTS: Normal sinus rhythm without intraventricular conduction disturbance. Technically challenging study in light of the patients body habitus, but some diagnostically useful information was still obtained. M-mode and two-dimensional echocardiography was performed with pulse, continuous wave, color flow, and tissue Doppler studies. Normal left ventricular size, wall thickness, and hyperkinetic wall motion. Borderline left atrial enlargement with grade 1 left ventricular (LV) diastolic dysfunction, but current estimated mean left atrial pressure upper limits of normal. Normal right heart chamber sizes and motion with Doppler evidence of pulmonary arterial pressure upper limits of normal to borderline increased. Normal inferior vena cava (IVC) size and collapse against an elevated central venous pressure. Normal aortic dimensions. Normal appearing and functioning valvular structures with trace mitral and tricuspid insufficiency (physiological findings). No apparent intracardiac mass or pericardial effusion. MTDD
== END ==
LOC: M CARPUL 12:23
PROVIDERS: ATTEND Hospitalist
DX: I50.32 Chronic diastolic (congestive) heart failure (principal); Z13.1 Encounter for screening for diabetes mellitus; Z86.19 Personal history of other infectious and parasitic diseases

== ENCOUNTER → 2020-02-06 | Outpatient (CLI) | payer OTHER ==
[2020-02-06 13:25] LABS: HEMOGLOBIN 13.7 g/dl (12.0-15.5); MEAN CORPUSCULAR HEMOGLOBIN 29.1 pg (27.0-33.0); MEAN CORPUSCULAR HGB CONC 32.6 g/dl (32.0-36.5); MEAN CORPUSCULAR VOLUME 89.4 fl (80.0-96.0); PLATELET COUNT, AUTOMATED 154 10^3/uL (150-450); WHITE BLOOD COUNT 6.1 10^3/uL (4.0-10.0)
[2020-02-06 13:57] LABS: HCG, SERUM QUALITATIVE NEGATIVE (NEGATIVE)
[2020-02-06 15:01] LABS: ALBUMIN 3.5 GM/DL (3.2-5.2); ALT/SGPT 39 U/L (12-78); BILIRUBIN,TOTAL 0.9 MG/DL (0.2-1.0); BLOOD UREA NITROGEN 7 MG/DL (7-18); CALCIUM LEVEL 8.8 MG/DL (8.5-10.1); CARBON DIOXIDE LEVEL 26 MEQ/L (21-32); CHLORIDE LEVEL 102 MEQ/L (98-107); GLOMERULAR FILTRATION RATE > 60.0 (>58); GLUCOSE, FASTING 293 MG/DL (70-100); HEPATITIS B SURFACE ANTIGEN NEGATIVE (NEGATIVE); HIV 1&2 SCREEN CENTAUR NEGATIVE (NEGATIVE); SODIUM LEVEL 137 MEQ/L (136-145); TOTAL PROTEIN 7.7 GM/DL (6.4-8.2)
[2020-02-06 15:02] LABS: HEPATITIS C VIRUS ABY INDEX > 11.0 INDEX (<0.8)
[2020-02-06 15:23] LABS: CHLAMYDIA DNA AMPLIFICATION NEGATIVE (NEGATIVE); GC DNA AMPLIFICATION NEGATIVE (NEGATIVE)
--- NOTE | 2020-02-07 15:16 | ECGEPIP ---
[facility] Test Date: 2020-02-06 Pat Name: DELMAR HOROWITZ Department: Room: - Gender: Female Cotton Agent: MARILU : 1980 Requested By: Anil Dewitt Order Number: [id number] Reading MD: Alex Feng Measurements Intervals [place] Rate: 89 P: 79 PA: 155 QRS: 71 QRSD: 93 T: 68 QT: 362 QTc: 441 Interpretive Statements SINUS RHYTHM BORDERLINE LOW VOLTAGE IN LIMB Compared to prior tracings (4) in the system, no remarkable changes Electronically Signed on 02-07-2020 15:16:21 EST by Alex Feng
== END ==
LOC: M LAB 12:20
PROVIDERS: ATTEND Family Medicine
DX: F11.20 Opioid dependence, uncomplicated (principal)

== ENCOUNTER → 2020-02-26 | Outpatient (REF) | payer OTHER ==
[~2020-02-26] MED LIST changes: +MIRT-60 PO; -REME30TA PO
[2020-02-26 17:59] LABS: APPEARANCE, URINE CLEAR (CLEAR); BACTERIA, URINE AUTO NEGATIVE (NEGATIVE); BILIRUBIN, URINE AUTO NEGATIVE (NEGATIVE); BLOOD, URINE BLOOD NEGATIVE (NEGATIVE); COLOR, URINE YELLOW (YELLOW); GLUCOSE, URINE (UA) AUTO 3+ mg/dL (NEGATIVE); KETONE, URINE AUTO NEGATIVE (NEGATIVE); LEUKOCYTE ESTERASE, URINE AUTO NEGATIVE (NEGATIVE); NITRITE, URINE AUTO NEGATIVE (NEGATIVE); PROTEIN, URINE AUTO 2+ mg/dL (NEGATIVE); RBC, URINE AUTO 0 /HPF (0-3); SPECIFIC GRAVITY URINE AUTO 1.031 (1.002-1.035); SQUAMOUS EPITHELIAL CELL UR AU 0 /HPF (0-6); WBC, URINE AUTO 0 /HPF (0-3)
== END ==
LOC: M SFHCPLAZ 17:12
PROVIDERS: ATTEND Hospitalist
DX: R60.0 Localized edema (principal)

== ENCOUNTER 2020-09-02 14:57 | Emergency (ER) | payer OTHER ==
[~2020-09-02] VITALS: Ht 167.6 cm; Wt 95.9 kg
[~2020-09-02 14:57] MED LIST changes: +GABA-282 PO; -GABA-843 PO; +OMEP40CA4 PO; -OMEP40CA97 PO
--- NOTE | 2020-09-02 16:52 | REP ---
INDICATION: DYSPNEA/COUGH. COMPARISON: Multiple the latest 03/25/2019 a two view exam TECHNIQUE: Portable FINDINGS: The technique utilized in obtaining the radiograph has magnified the cardiac silhouette and accentuated the interstitial markings. The superior mediastinal structures are midline. The cardiac silhouette is unremarkable in size, shape, and position. The diaphragmatic surfaces of the lungs are regular, and the costophrenic angles are clear. The pulmonary garcia are clear. The imaged osseous structures are intact. IMPRESSION: There is no acute cardiopulmonary disease. <Electronically signed by Zach Salmeron > 09/02/20 [id number]
[2020-09-02 17:44] LABS: BASO % 0.4 % (0.0-1.0); EOS # 0.2 10^3/uL (0.0-0.5); EOS % 1.9 % (0.0-3.0); HEMATOCRIT 45.8 % (36.0-47.0); HEMOGLOBIN 14.8 g/dl (12.0-15.5); LYMPH # 2.7 10^3/uL (1.5-5.0); LYMPH % 33.5 % (24.0-44.0); MEAN CORPUSCULAR HEMOGLOBIN 28.6 pg (27.0-33.0); MEAN CORPUSCULAR HGB CONC 32.3 g/dl (32.0-36.5); MEAN CORPUSCULAR VOLUME 88.6 fl (80.0-96.0); MONO # 0.6 10^3/uL (0.0-0.8); MONO % 7.6 % (2.0-8.0); NEUTROPHILS # 4.5 10^3/uL (1.5-8.5); NEUTROPHILS % 56.4 % (36.0-66.0); PLATELET COUNT, AUTOMATED 177 10^3/uL (150-450); RED BLOOD COUNT 5.17 10^6/uL (4.00-5.40)
[2020-09-02 18:10] LABS: ALT/SGPT 31 U/L (12-78); BILIRUBIN,DIRECT 0.3 MG/DL (0.0-0.2); BILIRUBIN,TOTAL 1.7 MG/DL (0.2-1.0); BLOOD UREA NITROGEN 15 MG/DL (7-18); CALCIUM LEVEL 9.3 MG/DL (8.5-10.1); CARBON DIOXIDE LEVEL 26 MEQ/L (21-32); CHLORIDE LEVEL 102 MEQ/L (98-107); GLOMERULAR FILTRATION RATE > 60.0 (>58); GLUCOSE, FASTING 137 MG/DL (70-100); POTASSIUM SERUM 3.6 MEQ/L (3.5-5.1); SODIUM LEVEL 134 MEQ/L (136-145)
[2020-09-02 18:13] LABS: CK-MB VALUE MASS < 1.0 NG/ML (<3.6); CPK CREATINE PHOSPHOKINASE 62 U/L (26-192); MB/CK RELATIVE INDEX 1.61 (< OR =4); TROPONIN I < 0.02 NG/ML (< 0.10)
[2020-09-02 19:25] LABS: NT-PRO BNP 70 PG/ML (<125)
[2020-09-02 19:47] VITALS: O2SAT 96
[2020-09-02 20:07] VITALS: BP 182/85
--- NOTE | 2020-09-02 21:48 | ECGEPIP ---
[facility] - ED Test Date: 2020-09-02 Pat Name: DELMAR HOROWITZ Department: Room: - Gender: Female Health Associate: calvin : 1980 Requested By: Iris Cisneros Order Number: [id number] Reading MD: Erne Larsen Measurements Intervals [place] Rate: 99 P: 70 ND: 150 QRS: 81 QRSD: 84 T: 54 QT: 360 QTc: 462 Interpretive Statements Normal sinus rhythm POOR R WAVE PROGRESSION SIMILAR TO 02/06/20 Electronically Signed on 09-02-2020 21:48:30 EDT by Eren Larsen
== END 2020-09-02 20:11 | disposition home or self-care (01) ==
LOC: M ED 14:57
DX: R06.02 Shortness of breath (principal); I11.0 Hypertensive heart disease with heart failure; R06.09 Other forms of dyspnea; E78.5 Hyperlipidemia, unspecified; K21.9 Gastro-esophageal reflux disease without esophagitis; F17.200 Nicotine dependence, unspecified, uncomplicated; Z79.899 Other long term (current) drug therapy

== ENCOUNTER 2020-10-24 20:26 | Emergency (ER) | payer OTHER ==
[~2020-10-24] VITALS: Ht 167.6 cm; Wt 99.7 kg
[~2020-10-24 20:26] MED LIST changes: +METH-1177 PO; -METH10TA2 PO
[2020-10-24 20:27] VITALS: BP 135/84
== END 2020-10-25 00:05 | disposition left against medical advice (07) ==
LOC: M ED 20:26
DX: Z53.21 Procedure and treatment not carried out due to patient leaving prior to being seen by health care provider (principal)

== ENCOUNTER → 2021-09-21 | Outpatient (CLI) | payer OTHER ==
[2021-09-21 15:41] LABS: HEMATOCRIT 41.6 % (36.0-47.0); HEMOGLOBIN 13.5 g/dl (12.0-15.5); MEAN CORPUSCULAR HEMOGLOBIN 30.9 pg (27.0-33.0); MEAN CORPUSCULAR HGB CONC 32.5 g/dl (32.0-36.5); MEAN CORPUSCULAR VOLUME 95.2 fl (80.0-96.0); PLATELET COUNT, AUTOMATED 170 10^3/uL (150-450); RED BLOOD COUNT 4.37 10^6/uL (4.00-5.40); WHITE BLOOD COUNT 9.2 10^3/uL (4.0-10.0)
== END ==
LOC: M PLALAB 12:25
PROVIDERS: ATTEND Student in an Organized Health Care Education/Training Program
DX: R10.11 Right upper quadrant pain (principal); F17.210 Nicotine dependence, cigarettes, uncomplicated

== ENCOUNTER → 2021-10-07 | Outpatient (CLI) | payer OTHER | LOC: M CARPUL 14:23 | PROVIDERS: ATTEND Student in an Organized Health Care Education/Training Program | DX: I50.32 Chronic diastolic (congestive) heart failure (principal) ==

== ENCOUNTER → 2021-10-13 | Outpatient (CLI) | payer OTHER | LOC: M RAD 10:57 | PROVIDERS: ATTEND Student in an Organized Health Care Education/Training Program | DX: K80.20 Calculus of gallbladder without cholecystitis without obstruction (principal) ==

== ENCOUNTER → 2021-10-14 | Outpatient (CLI) | payer OTHER ==
[2021-10-14 15:38] LABS: HEMATOCRIT 38.7 % (36.0-47.0); MEAN CORPUSCULAR HEMOGLOBIN 29.8 pg (27.0-33.0); PLATELET COUNT, AUTOMATED 117 10^3/uL (150-450); RED BLOOD COUNT 4.03 10^6/uL (4.00-5.40); WHITE BLOOD COUNT 7.4 10^3/uL (4.0-10.0)
[2021-10-14 16:02] LABS: HCG, SERUM QUALITATIVE NEGATIVE (NEGATIVE)
[2021-10-14 16:26] LABS: ALBUMIN 3.3 GM/DL (3.2-5.2); ALT/SGPT 20 U/L (12-78); BILIRUBIN,TOTAL 0.4 MG/DL (0.2-1.0); BLOOD UREA NITROGEN 11 MG/DL (7-18); CARBON DIOXIDE LEVEL 27 MEQ/L (21-32); CHLORIDE LEVEL 106 MEQ/L (98-107); CREATININE FOR GFR 0.53 MG/DL (0.55-1.30); GLOMERULAR FILTRATION RATE > 60.0 (>58); GLUCOSE, FASTING 184 MG/DL (70-100); POTASSIUM SERUM 4.5 MEQ/L (3.5-5.1); SODIUM LEVEL 138 MEQ/L (136-145); TOTAL PROTEIN 7.3 GM/DL (6.4-8.2)
[2021-10-14 17:10] LABS: HEPATITIS B SURFACE ANTIGEN NEGATIVE (NEGATIVE)
[2021-10-14 17:39] LABS: HIV 1&2 SCREEN CENTAUR NEGATIVE (NEGATIVE)
[2021-10-14 17:47] LABS: HEPATITIS C VIRUS ABY INDEX > 11.0 INDEX (<0.8)
[2021-10-14 19:51] LABS: GC DNA AMPLIFICATION NEGATIVE (NEGATIVE)
== END ==
LOC: M PLALAB 12:42
PROVIDERS: ATTEND Family Medicine
DX: F11.21 Opioid dependence, in remission (principal)

== ENCOUNTER → 2021-10-14 | Outpatient (CLI) | payer OTHER | LOC: M PLALAB 12:37 | PROVIDERS: ATTEND Specialist | DX: Z02.1 Encounter for pre-employment examination (principal) ==

== ENCOUNTER → 2022-01-01 | Outpatient (CLI) | payer OTHER ==
[~2022-01-01] MED LIST changes: +FLUTISP INH; +METF850T4 PO; +PANT40TA29 PO; +THERTAB52 PO
== END ==
LOC: M LABSMTC 09:02
PROVIDERS: ATTEND Anesthesiology
DX: Z01.812 Encounter for preprocedural laboratory examination (principal); Z11.52 Encounter for screening for COVID-19

== ENCOUNTER 2022-01-05 06:57 | Day surgery (SDC) | payer OTHER ==
[~2022-01-05] VITALS: Ht 165.1 cm; Wt 100.2 kg
[2022-01-05] MEDS: NS 1,000 ML IV ONE (07:20)
[2022-01-05] MEDS ORDERED: propofoL 500 MG/50 ML VIAL As Ordered ONE (07:51)
[2022-01-05] MEDS ORDERED: fentaNYL 100 MCG/2 ML INJECTION As Ordered ONE (07:51)
[2022-01-05] MEDS ORDERED: LIDOCAINE 2% 100MG/5ML SDV (FOR ANES.) As Ordered ONE (07:51)
[2022-01-05 08:25] VITALS: BP 117/57
== END 2022-01-05 08:36 | disposition home or self-care (01) ==
LOC: M OPP 06:57
PROVIDERS: ATTEND Surgery
DX: K31.89 Other diseases of stomach and duodenum (principal); K26.9 Duodenal ulcer, unspecified as acute or chronic, without hemorrhage or perforation; F17.200 Nicotine dependence, unspecified, uncomplicated; Z79.51 Long term (current) use of inhaled steroids; Z79.84 Long term (current) use of oral hypoglycemic drugs; Z79.891 Long term (current) use of opiate analgesic; Z79.899 Other long term (current) drug therapy; E11.9 Type 2 diabetes mellitus without complications; F32.9 Major depressive disorder, single episode, unspecified; F41.9 Anxiety disorder, unspecified; F43.10 Post-traumatic stress disorder, unspecified; Z87.442 Personal history of urinary calculi; Z80.3 Family history of malignant neoplasm of breast; Z80.49 Family history of malignant neoplasm of other genital organs
CPT/HCPCS: 43239; 88305; J3010

== ENCOUNTER 2022-04-06 13:44 | Emergency (ER) | payer OTHER ==
[~2022-04-06] VITALS: Ht 165.1 cm; Wt 96.1 kg
[2022-04-06 13:45] VITALS: BP 124/70
== END 2022-04-06 18:00 | disposition left against medical advice (07) ==
LOC: M ED 17:58
DX: Z53.21 Procedure and treatment not carried out due to patient leaving prior to being seen by health care provider (principal)

== ENCOUNTER 2022-09-15 00:32 | Emergency (ER) | payer OTHER ==
[~2022-09-15] VITALS: Ht 165.1 cm; Wt 93.8 kg
[~2022-09-15 00:32] MED LIST changes: +FLUT50SP17 NARES; -FLUTISP INH; +POTA-298 PO; -POTA1TAB14 PO
[2022-09-15] MEDS ORDERED: NS 500 ML IV ONE (02:05)
[2022-09-15] MEDS ORDERED: ACETAMINOPHEN 325 MG TAB PO ONE (02:10)
[2022-09-15 02:42] LABS: BASO % 0.2 % (0.0-1.0); HEMATOCRIT 35.6 % (36.0-47.0); HEMOGLOBIN 11.2 g/dl (12.0-15.5); LYMPH # 0.8 10^3/uL (1.5-5.0); LYMPH % 6.3 % (24.0-44.0); MEAN CORPUSCULAR HEMOGLOBIN 28.4 pg (27.0-33.0); MEAN CORPUSCULAR HGB CONC 31.5 g/dl (32.0-36.5); MEAN CORPUSCULAR VOLUME 90.4 fl (80.0-96.0); MONO # 0.3 10^3/uL (0.0-0.8); MONO % 2.3 % (2.0-8.0); NEUTROPHILS # 10.7 10^3/uL (1.5-8.5); NEUTROPHILS % 90.1 % (36.0-66.0); PLATELET COUNT, AUTOMATED 110 10^3/uL (150-450); RED BLOOD COUNT 3.94 10^6/uL (4.00-5.40); WHITE BLOOD COUNT 11.9 10^3/uL (4.0-10.0)
[2022-09-15] MEDS ORDERED: DALBAVANCIN 1,500 MG in D5W 250 ML IV ONE (03:20)
[2022-09-15 03:24] LABS: BLOOD UREA NITROGEN 17 MG/DL (9-23); CALCIUM LEVEL 8.4 MG/DL (8.5-10.1); CARBON DIOXIDE LEVEL 28 MMOL/L (20-31); CHLORIDE LEVEL 102 MMOL/L (98-107); CREATININE FOR GFR 0.71 MG/DL (0.55-1.30); GLOMERULAR FILTRATION RATE > 60.0 (>58); GLUCOSE, FASTING 150 MG/DL (60-100); POTASSIUM SERUM 3.8 MMOL/L (3.5-5.1); SODIUM LEVEL 135 MMOL/L (136-145)
[2022-09-15 05:37] VITALS: BP 91/56; TEMP 96.9; O2SAT 97
[2022-09-16] MEDS ORDERED: POTA10PO PO (17:18)
== END 2022-09-15 06:37 | disposition home or self-care (01) ==
LOC: M ED 00:32
DX: L03.115 Cellulitis of right lower limb (principal); E11.9 Type 2 diabetes mellitus without complications; E78.5 Hyperlipidemia, unspecified; F17.200 Nicotine dependence, unspecified, uncomplicated; Z79.4 Long term (current) use of insulin; Z79.899 Other long term (current) drug therapy
CPT/HCPCS: 73590; 80048; 83605; 85025; 93971; 96365; 96366; 99284; J0875

== ENCOUNTER 2022-09-16 11:30 | Inpatient (IN) | payer OTHER ==
[~2022-09-16] VITALS: Ht 165.1 cm; Wt 96.8 kg
[2022-09-16] MEDS ORDERED: PIPERACILLIN/TAZOBACTAM SOD 4.5 GM in D5W MINI-BAG PLUS 50 ML IV ONE (12:35)
[2022-09-16] MEDS ORDERED: VANCOMYCIN HCL 2,000 MG in D5W 500 ML IV ONE (12:35)
[2022-09-16 13:28] LABS: BASO % 0.1 % (0.0-1.0); EOS % 0.3 % (0.0-3.0); HEMATOCRIT 33.9 % (36.0-47.0); HEMOGLOBIN 10.5 g/dl (12.0-15.5); LYMPH # 1.3 10^3/uL (1.5-5.0); LYMPH % 18.7 % (24.0-44.0); MEAN CORPUSCULAR VOLUME 90.4 fl (80.0-96.0); MONO # 0.5 10^3/uL (0.0-0.8); MONO % 7.4 % (2.0-8.0); NEUTROPHILS # 5.1 10^3/uL (1.5-8.5); NEUTROPHILS % 72.6 % (36.0-66.0); PLATELET COUNT, AUTOMATED 108 10^3/uL (150-450); RED BLOOD COUNT 3.75 10^6/uL (4.00-5.40); WHITE BLOOD COUNT 7.1 10^3/uL (4.0-10.0)
[2022-09-16 13:45] LABS: INR 0.95; PROTHROMBIN TIME 12.9 SECONDS (12.5-14.5)
[2022-09-16 13:46] LABS: PARTIAL THROMBOPLASTIN TIME 28.1 SECONDS (24.8-34.2)
[2022-09-16 13:51] LABS: RSV AMPLIFICATION NEGATIVE (NEGATIVE)
[2022-09-16 13:53] LABS: ALBUMIN 2.6 G/DL (3.2-5.2); ALKALINE PHOSPHATASE 92 U/L (46-116); ALT/SGPT 21 U/L (7.0-40); AST/SGOT 16 U/L (<34); BILIRUBIN,DIRECT 0.4 MG/DL (<0.4); BILIRUBIN,TOTAL 0.8 MG/DL (0.3-1.2); BLOOD UREA NITROGEN 18 MG/DL (9-23); CALCIUM LEVEL 9.2 MG/DL (8.5-10.1); CARBON DIOXIDE LEVEL 28 MMOL/L (20-31); CHLORIDE LEVEL 102 MMOL/L (98-107); CREATININE FOR GFR 0.52 MG/DL (0.55-1.30); GLOMERULAR FILTRATION RATE > 60.0 (>58); GLUCOSE, FASTING 108 MG/DL (60-100); POTASSIUM SERUM 3.3 MMOL/L (3.5-5.1); SODIUM LEVEL 138 MMOL/L (136-145); TOTAL PROTEIN 6.9 G/DL (5.7-8.2)
[2022-09-16 13:55] LABS: THYROID STIMULATING HORMONE 1.171 uIU/ML (0.55-4.78)
[2022-09-16 13:56] LABS: THYROXINE (T4) 11.7 UG/DL (4.5-10.9)
[2022-09-16 13:59] LABS: ERYTHROCYTE SEDIMENTATION RATE > 130 mm/hr (0-20)
[2022-09-16] MEDS ORDERED: VANCOMYCIN HCL 1,000 MG, VIAL MATE ADAPTER 1 EACH in D5W 250 ML IV ONE ×2 (14:00→15:00)
[2022-09-16] MEDS ORDERED: GLUCAGON INJ 1MG VIAL SC PRN (15:25)
[2022-09-16] MEDS ORDERED: GLUCOSE 4GM CHEW TABLET PO PRN (15:25)
[2022-09-16] MEDS ORDERED: DEXTROSE 50% 50ML SYRINGE IV PRN (15:25)
[2022-09-16 15:41] VITALS: BP 116/68; TEMP 97.5; O2SAT 99
[2022-09-16] MEDS ORDERED: MED REC IN PROGRESS XX SCH (16:20)
[2022-09-16] MEDS ORDERED: POTA10PO PO (17:18)
[2022-09-16] MEDS ORDERED: HOME MED LIST COMPLETE! XX SCH (17:25)
[2022-09-16] MEDS: INSULIN LISPRO (NovoLOG) PER UNIT SC SCH ×2 (17:30→21:00)
[2022-09-16] MEDS: CEFTAROLINE FOSAMIL 600 MG in D5W MINI-BAG PLUS 50 ML IV SCH (19:50)
[2022-09-16] MEDS: KETOROLAC 30 MG/ML 1ML VIAL IV PRN (19:51)
[2022-09-16] MEDS ORDERED: MAALOX 30 ML SUSP *UDC PO PRN (21:45)
[2022-09-16 22:00] VITALS: BP 109/68; TEMP 97.2; O2SAT 94
[2022-09-17] MEDS: KETOROLAC 30 MG/ML 1ML VIAL IV PRN ×2 (05:58→20:45)
[2022-09-17 06:00] VITALS: BP 105/68; TEMP 97.7; O2SAT 95
[2022-09-17 06:26] LABS: HEMATOCRIT 33.1 % (36.0-47.0); MEAN CORPUSCULAR HEMOGLOBIN 27.5 pg (27.0-33.0); MEAN CORPUSCULAR HGB CONC 30.2 g/dl (32.0-36.5); MEAN CORPUSCULAR VOLUME 91.2 fl (80.0-96.0); PLATELET COUNT, AUTOMATED 114 10^3/uL (150-450); RED BLOOD COUNT 3.63 10^6/uL (4.00-5.40); WHITE BLOOD COUNT 5.6 10^3/uL (4.0-10.0)
[2022-09-17 06:58] LABS: BLOOD UREA NITROGEN 13 MG/DL (9-23); CALCIUM LEVEL 8.4 MG/DL (8.5-10.1); CARBON DIOXIDE LEVEL 32 MMOL/L (20-31); CHLORIDE LEVEL 102 MMOL/L (98-107); CREATININE FOR GFR 0.56 MG/DL (0.55-1.30); GLOMERULAR FILTRATION RATE > 60.0 (>58); GLUCOSE, FASTING 114 MG/DL (60-100); POTASSIUM SERUM 3.1 MMOL/L (3.5-5.1); SODIUM LEVEL 140 MMOL/L (136-145)
[2022-09-17 07:13] LABS: ATYPICAL LYMPH 2 % (0-5); BASOPHILS 2 % (0-1); LYMPHOCYTES 22 % (16-44); MONOCYTES 8 % (0-5); NEUTROPHILS 57 % (28-66)
[2022-09-17 07:14] LABS: PLATELET ESTIMATE DECREASED (NORMAL)
[2022-09-17 07:15] LABS: ANISOCYTOSIS 1+; POLYCHROMASIA 1+
[2022-09-17] MEDS ORDERED: MIRTAZAPINE 15 MG TAB PO PRN (07:30)
[2022-09-17] MEDS: INSULIN LISPRO (NovoLOG) PER UNIT SC SCH ×4 (07:30→20:46)
[2022-09-17] MEDS ORDERED: POTASSIUM CHLORIDE 10MEQ SR TABLET PO ONE (07:30)
[2022-09-17] MEDS: CEFTAROLINE FOSAMIL 600 MG in D5W MINI-BAG PLUS 50 ML IV SCH ×2 (07:54→20:45)
[2022-09-17] MEDS: CETIRIZINE (ZyrTEC) 10 MG TAB PO SCH (08:44)
[2022-09-17] MEDS: METHADONE 10MG TAB PO SCH (08:44)
[2022-09-17] MEDS: PANTOPRAZOLE 40MG TAB (PROTONIX) PO SCH (08:44)
[2022-09-17] MEDS: FLUTICASONE PROP 0.05% NASAL SPRAY 16 GM (FLONASE) NARES SCH (08:56)
[2022-09-17 14:00] VITALS: BP 106/65; TEMP 97.3; O2SAT 95
[2022-09-17 20:20] VITALS: BP 112/64; TEMP 97.7; O2SAT 96
[2022-09-18 05:56] VITALS: BP 112/66; TEMP 98.1; O2SAT 96
[2022-09-18 06:30] LABS: BASO % 0.5 % (0.0-1.0); EOS % 0.7 % (0.0-3.0); HEMATOCRIT 30.6 % (36.0-47.0); HEMOGLOBIN 9.3 g/dl (12.0-15.5); LYMPH # 1.6 10^3/uL (1.5-5.0); LYMPH % 29.5 % (24.0-44.0); MEAN CORPUSCULAR HEMOGLOBIN 28.1 pg (27.0-33.0); MEAN CORPUSCULAR HGB CONC 30.4 g/dl (32.0-36.5); MEAN CORPUSCULAR VOLUME 92.4 fl (80.0-96.0); MONO # 0.5 10^3/uL (0.0-0.8); MONO % 9.2 % (2.0-8.0); NEUTROPHILS # 3.1 10^3/uL (1.5-8.5); PLATELET COUNT, AUTOMATED 124 10^3/uL (150-450); RED BLOOD COUNT 3.31 10^6/uL (4.00-5.40); WHITE BLOOD COUNT 5.5 10^3/uL (4.0-10.0)
[2022-09-18 06:42] LABS: BLOOD UREA NITROGEN 11 MG/DL (9-23); CALCIUM LEVEL 8.2 MG/DL (8.5-10.1); CARBON DIOXIDE LEVEL 30 MMOL/L (20-31); CHLORIDE LEVEL 103 MMOL/L (98-107); CREATININE FOR GFR 0.56 MG/DL (0.55-1.30); GLOMERULAR FILTRATION RATE > 60.0 (>58); GLUCOSE, FASTING 156 MG/DL (60-100); POTASSIUM SERUM 3.4 MMOL/L (3.5-5.1); SODIUM LEVEL 139 MMOL/L (136-145)
[2022-09-18 06:55] LABS: ERYTHROCYTE SEDIMENTATION RATE 96 mm/hr (0-20)
[2022-09-18] MEDS: INSULIN LISPRO (NovoLOG) PER UNIT SC SCH ×4 (07:30→20:50)
[2022-09-18] MEDS: KETOROLAC 30 MG/ML 1ML VIAL IV PRN ×3 (08:01→20:48)
[2022-09-18] MEDS: CEFTAROLINE FOSAMIL 600 MG in D5W MINI-BAG PLUS 50 ML IV SCH ×2 (08:04→20:47)
[2022-09-18] MEDS: PANTOPRAZOLE 40MG TAB (PROTONIX) PO SCH (08:07)
[2022-09-18] MEDS: METHADONE 10MG TAB PO SCH (08:07)
[2022-09-18] MEDS: CETIRIZINE (ZyrTEC) 10 MG TAB PO SCH (08:07)
[2022-09-18] MEDS: FLUTICASONE PROP 0.05% NASAL SPRAY 16 GM (FLONASE) NARES SCH (08:08)
[2022-09-18 14:00] VITALS: BP 132/69; TEMP 97.3; O2SAT 97
[2022-09-18 20:49] VITALS: BP 114/61; TEMP 98.1; O2SAT 98
[2022-09-19] MEDS: KETOROLAC 30 MG/ML 1ML VIAL IV PRN (04:43)
[2022-09-19 06:56] VITALS: BP 115/60; TEMP 97.2; O2SAT 97
[2022-09-19] MEDS: INSULIN LISPRO (NovoLOG) PER UNIT SC SCH ×2 (07:30→12:00)
[2022-09-19 07:35] LABS: BASO # 0.1 10^3/uL (0.0-0.2); BASO % 0.8 % (0.0-1.0); EOS % 0.5 % (0.0-3.0); HEMATOCRIT 32.2 % (36.0-47.0); HEMOGLOBIN 9.9 g/dl (12.0-15.5); LYMPH # 1.6 10^3/uL (1.5-5.0); LYMPH % 25.6 % (24.0-44.0); MEAN CORPUSCULAR HEMOGLOBIN 28.3 pg (27.0-33.0); MEAN CORPUSCULAR HGB CONC 30.7 g/dl (32.0-36.5); MONO # 0.5 10^3/uL (0.0-0.8); MONO % 8.4 % (2.0-8.0); NEUTROPHILS # 3.7 10^3/uL (1.5-8.5); NEUTROPHILS % 60.2 % (36.0-66.0); WHITE BLOOD COUNT 6.2 10^3/uL (4.0-10.0)
[2022-09-19] MEDS: PANTOPRAZOLE 40MG TAB (PROTONIX) PO SCH (08:28)
[2022-09-19 08:29] LABS: BLOOD UREA NITROGEN 10 MG/DL (9-23); CALCIUM LEVEL 8.9 MG/DL (8.5-10.1); CARBON DIOXIDE LEVEL 27 MMOL/L (20-31); CHLORIDE LEVEL 102 MMOL/L (98-107); CREATININE FOR GFR 0.51 MG/DL (0.55-1.30); GLOMERULAR FILTRATION RATE > 60.0 (>58); GLUCOSE, FASTING 134 MG/DL (60-100); POTASSIUM SERUM 4.3 MMOL/L (3.5-5.1); SODIUM LEVEL 138 MMOL/L (136-145)
[2022-09-19] MEDS: CETIRIZINE (ZyrTEC) 10 MG TAB PO SCH (08:29)
[2022-09-19] MEDS: FLUTICASONE PROP 0.05% NASAL SPRAY 16 GM (FLONASE) NARES SCH (08:29)
[2022-09-19] MEDS: METHADONE 10MG TAB PO SCH (08:29)
[2022-09-19] MEDS: CEFTAROLINE FOSAMIL 600 MG in D5W MINI-BAG PLUS 50 ML IV SCH (08:29)
[2022-09-19 08:36] LABS: PLATELET COUNT, AUTOMATED 137 10^3/uL (150-450)
[2022-09-19] MEDS ORDERED: IBUP-1022 PO (11:20)
[2022-09-19] MEDS ORDERED: CEFU50TA PO (11:20)
[2022-09-19] MEDS ORDERED: ACET650T61 PO (11:20)
== END 2022-09-19 15:00 | disposition home or self-care (01) | DRG 383 ==
LOC: M ED 11:30 → M ED INP 14:57 → ENRESERV 15:12 → M MS5PR 15:40
PROVIDERS: ADMIT Internal Medicine Nephrology; ATTEND Internal Medicine Nephrology
DX: L03.115 Cellulitis of right lower limb (principal); I50.32 Chronic diastolic (congestive) heart failure; E66.9 Obesity, unspecified; Z68.35 Body mass index [BMI] 35.0-35.9, adult; F31.9 Bipolar disorder, unspecified; F43.10 Post-traumatic stress disorder, unspecified; E11.51 Type 2 diabetes mellitus with diabetic peripheral angiopathy without gangrene; E87.6 Hypokalemia; D69.6 Thrombocytopenia, unspecified; R26.89 Other abnormalities of gait and mobility; N20.0 Calculus of kidney; E78.1 Pure hyperglyceridemia; F34.1 Dysthymic disorder; L98.499 Non-pressure chronic ulcer of skin of other sites with unspecified severity; Z79.899 Other long term (current) drug therapy; K80.20 Calculus of gallbladder without cholecystitis without obstruction; F17.200 Nicotine dependence, unspecified, uncomplicated

== ENCOUNTER 2023-06-15 12:35 | Emergency (ER) | payer OTHER ==
[~2023-06-15] VITALS: Ht 167.6 cm; Wt 101.1 kg
[~2023-06-15 12:35] MED LIST changes: +ACET650T61 PO; +CEFU50TA PO; -EFFE150C2 PO; +EFFE150C3 PO; -FLUT50SP17 NARES; +FLUTISP NARES; +POTA10PO PO
[2023-06-15] MEDS ORDERED: BENZ200C70 PO (15:44)
[2023-06-15] MEDS ORDERED: CLOT10TR PO (15:44)
[2023-06-15 15:53] VITALS: BP 125/78; TEMP 98; O2SAT 96
== END 2023-06-15 15:55 | disposition home or self-care (01) ==
LOC: M ED 13:49
DX: B34.8 Other viral infections of unspecified site (principal); B37.0 Candidal stomatitis; K21.9 Gastro-esophageal reflux disease without esophagitis; N81.9 Female genital prolapse, unspecified; Z79.1 Long term (current) use of non-steroidal anti-inflammatories (NSAID); Z79.2 Long term (current) use of antibiotics; Z79.810 Long term (current) use of selective estrogen receptor modulators (SERMs); Z79.899 Other long term (current) drug therapy

== ENCOUNTER 2023-08-18 12:39 | Emergency (ER) | payer OTHER ==
[~2023-08-18] VITALS: Ht 170.2 cm; Wt 96.4 kg
[~2023-08-18 12:39] MED LIST changes: +BENZ200C70 PO; +CLOT10TR PO; -MIRT-60 PO; +MIRT-89 PO
[2023-08-18 12:51] VITALS: TEMP 99.5
[2023-08-18 13:03] LABS: BASO % 0.6 % (0.0-1.0); EOS # 0.1 10^3/uL (0.0-0.5); EOS % 0.9 % (0.0-3.0); HEMATOCRIT 46.7 % (36.0-47.0); HEMOGLOBIN 15.4 g/dl (12.0-15.5); LYMPH # 2.8 10^3/uL (1.5-5.0); LYMPH % 42.4 % (24.0-44.0); MEAN CORPUSCULAR HEMOGLOBIN 29.3 pg (27.0-33.0); MONO # 0.4 10^3/uL (0.0-0.8); MONO % 5.9 % (2.0-8.0); NEUTROPHILS # 3.3 10^3/uL (1.5-8.5); NEUTROPHILS % 49.1 % (36.0-66.0); RED BLOOD COUNT 5.25 10^6/uL (4.00-5.40); WHITE BLOOD COUNT 6.6 10^3/uL (4.0-10.0)
[2023-08-18 13:06] LABS: ABG BASE EXCESS 3.3 (-2.0-2.0); ABG HCO3 25.8 MMOL/L (22.0-26.0); ABG O2 SATURATION 97.2 % (95.0-99.0); ABG PARTIAL PRESSURE CO2 33.1 mmHg (35.0-45.0); ABG PARTIAL PRESSURE O2 84.2 mmHg (75.0-100.0); ABG STANDARD HCO3 27.4 MMOL/L. (22.0-26.0); ABG TOTAL CO2 26.8 MMOL/L (22.0-29.0)
[2023-08-18 13:28] LABS: ETHYL ALCOHOL (ETHANOL) < 0.003 % (0.000-0.010)
[2023-08-18 13:30] LABS: ALBUMIN 3.8 G/DL (3.2-5.2); ALKALINE PHOSPHATASE 75 U/L (46-116); ALT/SGPT 37 U/L (7.0-40); AST/SGOT 57 U/L (<34); BILIRUBIN,DIRECT 0.3 MG/DL (<0.4); BILIRUBIN,TOTAL 1.2 MG/DL (0.3-1.2); BLOOD UREA NITROGEN 13 MG/DL (9-23); CALCIUM LEVEL 10.3 MG/DL (8.5-10.1); CARBON DIOXIDE LEVEL 28 MMOL/L (20-31); CHLORIDE LEVEL 105 MMOL/L (98-107); CREATININE FOR GFR 0.51 MG/DL (0.55-1.30); GLOMERULAR FILTRATION RATE > 60.0 (>58); GLUCOSE, FASTING 190 MG/DL (60-100); POTASSIUM SERUM 5.6 MMOL/L (3.5-5.1); SALICYLATE LEVEL < 3.0 MG/DL (<30); SODIUM LEVEL 139 MMOL/L (136-145); TOTAL PROTEIN 7.6 G/DL (5.7-8.2)
[2023-08-18 13:32] LABS: OSMOLALITY SERUM 299 MOSM/KG (275-295); THYROID STIMULATING HORMONE 1.379 uIU/ML (0.55-4.78)
[2023-08-18] MEDS: NS 1,000 ML IV SCH (13:40)
[2023-08-18 13:52] LABS: AMPHETAMINES LEVEL URINE NEGATIVE (NEGATIVE); BARBITURATES URINE NEGATIVE (NEGATIVE); BENZODIAZEPINES URINE NEGATIVE (NEGATIVE); CANNABINOIDS URINE NEGATIVE (NEGATIVE); PHENCYCLIDINE URINE NEGATIVE (NEGATIVE)
[2023-08-18 13:57] LABS: COCAINE METABOLITE URINE POSITIVE (NEGATIVE); METHADONE URINE POSITIVE (NEGATIVE); OPIATES URINE POSITIVE (NEGATIVE)
[2023-08-18 17:22] VITALS: BP 126/76; O2SAT 93
== END 2023-08-18 17:36 | disposition home or self-care (01) ==
LOC: EDBD 12:39 → M ED 12:39
DX: F19.10 Other psychoactive substance abuse, uncomplicated (principal); E11.9 Type 2 diabetes mellitus without complications; F31.9 Bipolar disorder, unspecified; B18.2 Chronic viral hepatitis C; F17.200 Nicotine dependence, unspecified, uncomplicated; Z86.718 Personal history of other venous thrombosis and embolism; Z86.79 Personal history of other diseases of the circulatory system; Z79.1 Long term (current) use of non-steroidal anti-inflammatories (NSAID); Z79.810 Long term (current) use of selective estrogen receptor modulators (SERMs); Z79.899 Other long term (current) drug therapy

== ENCOUNTER → 2024-06-06 | Outpatient (REF) | payer OTHER ==
[~2024-06-06] MED LIST changes: +GABA-1172 PO; +GABA-1635 PO; -GABA-282 PO; -GABA800T4 PO
== END ==
LOC: M SFHCPLAZ 14:09
PROVIDERS: ATTEND Family Medicine
DX: J22 Unspecified acute lower respiratory infection (principal); K21.9 Gastro-esophageal reflux disease without esophagitis

== ENCOUNTER → 2024-06-06 | Outpatient (CLI) | payer OTHER | LOC: M PLAIMG 14:24 | DX: J22 Unspecified acute lower respiratory infection (principal); K21.9 Gastro-esophageal reflux disease without esophagitis ==

== ENCOUNTER → 2024-07-09 | Outpatient (CLI) | payer OTHER ==
[2024-07-09 14:15] LABS: HEMATOCRIT 44.4 % (36.0-47.0); HEMOGLOBIN 14.5 g/dl (12.0-15.5); MEAN CORPUSCULAR HEMOGLOBIN 30.2 pg (27.0-33.0); MEAN CORPUSCULAR HGB CONC 32.7 g/dl (32.0-36.5); MEAN CORPUSCULAR VOLUME 92.5 fl (80.0-96.0); PLATELET COUNT, AUTOMATED 121 10^3/uL (150-450); WHITE BLOOD COUNT 6.2 10^3/uL (4.0-10.0)
[2024-07-09 14:53] LABS: ALBUMIN 3.8 G/DL (3.2-5.2); ALKALINE PHOSPHATASE 74 U/L (35-104); ALT/SGPT 31 U/L (7.0-40); AST/SGOT 21 U/L (<34); BILIRUBIN,TOTAL 0.9 MG/DL (0.3-1.2); BLOOD UREA NITROGEN 11 MG/DL (9-23); CALCIUM LEVEL 8.5 MG/DL (8.5-10.1); CARBON DIOXIDE LEVEL 28 MMOL/L (20-31); CHLORIDE LEVEL 100 MMOL/L (98-107); CHOLESTEROL LEVEL 223 MG/DL (<200); CREATININE FOR GFR 0.39 MG/DL (0.55-1.30); GLOMERULAR FILTRATION RATE > 90.0 (>58); GLUCOSE, FASTING 288 MG/DL (60-100); HDL CHOLESTEROL 32.3 MG/DL (>40); NON-HDL-C 190.7 MG/DL; POTASSIUM SERUM 4.3 MMOL/L (3.5-5.1); SODIUM LEVEL 137 MMOL/L (136-145); TOTAL PROTEIN 7.3 G/DL (5.7-8.2); TRIGLYCERIDES LEVEL 1537 MG/DL (<150)
[2024-07-09 15:03] LABS: HEMOGLOBIN A1c 8.4 % (4.0-6.0)
== END ==
LOC: M PLALAB 09:39
DX: E11.9 Type 2 diabetes mellitus without complications (principal)

== ENCOUNTER → 2024-07-21 | Outpatient (CLI) | payer OTHER ==
[~2024-07-21] MED LIST changes: -CLOT10TR PO; +CLOT10TR11 PO
== END ==
LOC: M CARPUL 11:06
DX: I50.32 Chronic diastolic (congestive) heart failure (principal)

== ENCOUNTER → 2024-07-21 | Outpatient (CLI) | payer OTHER | LOC: M RAD 11:07 | PROVIDERS: ATTEND Physician Assistant Medical | DX: R22.42 Localized swelling, mass and lump, left lower limb (principal) ==

== ENCOUNTER → 2024-07-22 | Outpatient (REF) | payer OTHER | LOC: M SFHCPLAZ 17:16 | DX: E11.9 Type 2 diabetes mellitus without complications (principal); E78.5 Hyperlipidemia, unspecified ==

== ENCOUNTER 2024-10-29 09:17 | Day surgery (SDC) | payer OTHER ==
[~2024-10-29] VITALS: Ht 167.6 cm; Wt 92.9 kg
[~2024-10-29 09:17] MED LIST changes: +ALBU8.5H; +CelecoXIB 400 MG CAP PO ONE; +INDOCYANINE GREEN 25 MG VIAL As Ordered ONE; +LIDOCAINE 2% 100 MG/5 ML SDV (FOR ANES.) As Ordered ONE; +LOVA40TA PO; +METF10004 PO; +ONDANSETRON 4MG 2ML VIAL As Ordered ONE; -PROZ20CA11 PO; +PROZ20CA12 PO; +ROCURONIUM BROMIDE 50MG/5ML VIAL As Ordered ONE; +dexAMETHasone 4 MG/ML 1 ML VIAL As Ordered ONE
[2024-10-29] MEDS ORDERED: LR 1,000 ML IV SCH (09:35)
[2024-10-29] MEDS ORDERED: LAMO150T3 PO (09:37)
[2024-10-29] MEDS ORDERED: CLONI1TA PO (09:37)
[2024-10-29] MEDS ORDERED: MIDAZOLAM INJ 2 MG/2 ML VIAL As Ordered ONE (10:12)
[2024-10-29] MEDS ORDERED: OXYC1TAB23 PO (10:29)
[2024-10-29] MEDS: ceFAZolin SOD 2 GM IV ONCE IV ONE (10:40)
[2024-10-29] MEDS ORDERED: dexmedeTOMIDine (4 MCG/ML) 200 MCG/50 ML BTL As Ordered ONE (11:20)
[2024-10-29] MEDS ORDERED: ACETAMINOPHEN 1000MG/100ML IV BAG As Ordered ONE (11:22)
[2024-10-29] MEDS ORDERED: KETOROLAC 30 MG/ML 1 ML VIAL As Ordered ONE (11:32)
[2024-10-29] MEDS ORDERED: LABETALOL 100 MG/20 ML VIAL As Ordered ONE (11:32)
[2024-10-29] MEDS ORDERED: SUGAMMADEX SODIUM 200 MG/2 ML VIAL As Ordered ONE (11:32)
[2024-10-29] MEDS: LIDOCAINE 1% SDV 30 ML VIAL As Ordered ONE (12:00)
[2024-10-29] MEDS ORDERED: ONDANSETRON 4MG 2ML VIAL IV PRN (12:25)
[2024-10-29] MEDS ORDERED: HYDROMORPHONE HCL 0.5 MG/0.5 ML SYRINGE IV PRN (12:35)
[2024-10-29 14:35] VITALS: BP 123/70; TEMP 97.4; O2SAT 97
== END 2024-10-29 14:45 | disposition home or self-care (01) ==
LOC: M SDC 09:17
PROVIDERS: ATTEND Surgery
DX: K80.10 Calculus of gallbladder with chronic cholecystitis without obstruction (principal); I50.9 Heart failure, unspecified; R60.9 Edema, unspecified; E78.5 Hyperlipidemia, unspecified; E11.9 Type 2 diabetes mellitus without complications; K59.00 Constipation, unspecified; F17.210 Nicotine dependence, cigarettes, uncomplicated; F41.9 Anxiety disorder, unspecified; F32.A Depression, unspecified; Z79.51 Long term (current) use of inhaled steroids; Z79.84 Long term (current) use of oral hypoglycemic drugs; Z79.891 Long term (current) use of opiate analgesic; Z79.899 Other long term (current) drug therapy
CPT/HCPCS: 47563; 88304; J0131; J0665; J0690; J1100; J1885; J1920; J2250; J2405; J3010; Q9968; S2900

== ENCOUNTER → 2025-01-16 | Outpatient (REF) | payer OTHER ==
[~2025-01-16] MED LIST changes: +CLONI1TA PO; -CelecoXIB 400 MG CAP PO ONE; -IBUP-1022 PO; +IBUP600T42 PO; -INDOCYANINE GREEN 25 MG VIAL As Ordered ONE; +LAMO150T3 PO; -LIDOCAINE 2% 100 MG/5 ML SDV (FOR ANES.) As Ordered ONE; -ONDANSETRON 4MG 2ML VIAL As Ordered ONE; -ROCURONIUM BROMIDE 50MG/5ML VIAL As Ordered ONE; -dexAMETHasone 4 MG/ML 1 ML VIAL As Ordered ONE
== END ==
LOC: M SFHCPLAZ 13:35
PROVIDERS: ATTEND Family Medicine
DX: Z02.1 Encounter for pre-employment examination (principal)

== ENCOUNTER → 2025-01-19 | Outpatient (CLI) | payer OTHER ==
[2025-01-21 15:03] LABS: RUBEOLA IgG ANTIBODY 24.40 AU/mL (>16.49)
== END ==
LOC: M LAB 08:46
DX: Z02.1 Encounter for pre-employment examination (principal)

== ENCOUNTER → 2025-01-23 | Outpatient (REF) | payer OTHER | LOC: M SFHCPLAZ 09:09 | PROVIDERS: ATTEND Family Medicine | DX: Z53.9 Procedure and treatment not carried out, unspecified reason (principal) ==